=== PATIENT | female | born 1940 | race Caucasian/White ===

== ENCOUNTER 2017-02-17 16:40 | Inpatient (IN) | payer MEDICARE, BC ==
[2017-02-17] MEDS ORDERED: SODIUM CHLORIDE 0.9% 1000ML 500 ML IV SCH (17:15)
[2017-02-17] MEDS: SODIUM CHLORIDE 0.9% FLUSH 10 ML SOL IV PRN ×3 (17:15→20:49)
[2017-02-17 17:40] LABS: BASOPHILS % (AUTO) 0 % (0-3); EOSINOPHILS % (AUTO) 0 % (0-9); HEMATOCRIT 25 % (35-47); MEAN CORPUSCULAR HGB CONC 33.1 gm/dl (32.0-36.0); MEAN CORPUSCULAR VOLUME 83 fL (81-99); MONOCYTES % (AUTO) 7.5 % (0-12)
[2017-02-17] MEDS ORDERED: SODIUM CHLORIDE 0.9% 500 ML 500 ML IV ONE (17:40)
[2017-02-17 17:43] LABS: CALCIUM 8.3 mg/dl (8.5-10.1); POTASSIUM 3.5 mMol/L (3.5-5.1)
[2017-02-17] MEDS ORDERED: ACETAMINOPHEN 325 MG PO ONE (17:52)
[2017-02-17] MEDS ORDERED: ACETAMINOPHEN 325 MG ONE (17:56)
[2017-02-17 19:02] LABS: APPEARANCE,URINE Slightly Cloudy; BILIRUBIN,URINE 1+ (NEGATIVE); COLOR,URINE Brown; GLUCOSE, URINE (UA) NEGATIVE (NEGATIVE); KETONES,URINE NEGATIVE (NEGATIVE); LEUKOCYTE ESTERASE ,URINE 2+ (NEGATIVE); NITRATE,URINE POSITIVE (NEGATIVE); OCCULT BLOOD,URINE 3+ (NEG-TRACE); PH,URINE 5.5; UROBILINOGEN,URINE 0.2 (0.2-1.0 EU)
[2017-02-17] MEDS ORDERED: APAP/CODEINE 300/30 TAB PO PRN (19:06)
[2017-02-17] MEDS ORDERED: POLYETHYLENE GLYCOL 17 GM/1 TBS PDS PO PRN (19:06)
[2017-02-17] MEDS ORDERED: PREDNISONE 5 MG TAB PO SCH (19:15)
[2017-02-17] MEDS ORDERED: BRIMONIDINE 0.2% EACHEYE SCH (19:15)
[2017-02-17 19:54] LABS: ICTOTEST,URINE NEGATIVE (NEGATIVE); RBC,URINE TNTC (0-3AV/HPF); WBC,URINE TNTC (0-5AV/HPF)
[2017-02-17] MEDS ORDERED: CEFTRIAXONE 1 GM PDS 1 GM in SODIUM CHLORIDE 0.9% 100 ML 100 ML IV SCH (20:00)
[2017-02-17] MEDS: SODIUM CHLORIDE/KCL 20MEQ 1,000 ML IV SCH (20:49)
[2017-02-17] MEDS ORDERED: MYCOPHENOLATE 250 MG PO SCH (21:00)
[2017-02-17] MEDS ORDERED: DABIGATRAN 75 MG PO SCH (21:00)
[2017-02-17] MEDS ORDERED: MYCOPHENOLATE 500 MG PO SCH (21:00)
[2017-02-17] MEDS: BRIMONIDINE 0.2% EACHEYE SCH (22:15)
[2017-02-17] MEDS: LATANOPROST 0.005% SOL EACHEYE SCH (22:16)
[2017-02-17] MEDS: INSULIN GLARGINE, RECOMBINAN 100 U/ML SOL SC SCH (22:29)
[2017-02-17] MEDS: CEFTRIAXONE 1 GM (PREMIX) SOL IV SCH (22:32)
[2017-02-17] MEDS: ACETAMINOPHEN 325 MG PO SCH (22:37)
[2017-02-17] MEDS: GEMFIBROZIL 600 MG TAB PO SCH (22:37)
[2017-02-17] MEDS: EZETIMIBE 10 MG TAB PO SCH (22:37)
[2017-02-17] MEDS: MYCOPHENOLATE 250 MG PO SCH (22:59)
[2017-02-17] MEDS: DABIGATRAN 75 MG PO SCH (22:59)
[2017-02-17] MEDS: MYCOPHENOLATE 500 MG PO SCH (23:00)
[2017-02-18] MEDS: SODIUM CHLORIDE/KCL 20MEQ 1,000 ML IV SCH ×5 (02:54→20:03)
[2017-02-18] MEDS ORDERED: ACETAMINOPHEN 325 MG PO PRN (03:48)
[2017-02-18 08:05] LABS: BASOPHILS % (AUTO) 0 % (0-3); EOSINOPHILS % (AUTO) 0 % (0-9); HEMATOCRIT 22 % (35-47); MEAN CORPUSCULAR HGB CONC 33.3 gm/dl (32.0-36.0); MEAN CORPUSCULAR VOLUME 83 fL (81-99); MONOCYTES % (AUTO) 9.2 % (0-12); NEUTROPHILS % (AUTO) 82.9 % (37-80)
[2017-02-18 08:34] LABS: CALCIUM 7.6 mg/dl (8.5-10.1); POTASSIUM 3.3 mMol/L (3.5-5.1)
[2017-02-18] MEDS ORDERED: ENOXAPARIN 40 MG SOL SC SCH (09:00)
[2017-02-18] MEDS: BRIMONIDINE 0.2% EACHEYE SCH ×2 (09:20→20:04)
[2017-02-18] MEDS: MYCOPHENOLATE 250 MG PO SCH ×2 (09:20→17:25)
[2017-02-18] MEDS: MYCOPHENOLATE 500 MG PO SCH ×2 (09:20→17:26)
[2017-02-18] MEDS: HUMALOG PEN 100 U/ML SC SCH ×6 (09:21→18:47)
[2017-02-18] MEDS: DABIGATRAN 75 MG PO SCH ×2 (09:21→17:26)
[2017-02-18] MEDS: TIMOLOL MALEATE 0.5% OPHTHAL SOL EACHEYE SCH (09:22)
[2017-02-18] MEDS: GEMFIBROZIL 600 MG TAB PO SCH ×2 (09:30→17:25)
[2017-02-18] MEDS: CARVEDILOL 3.125 MG TAB PO SCH ×2 (09:30→17:25)
[2017-02-18] MEDS: DIGOXIN 0.125 MG TAB PO SCH (09:30)
[2017-02-18] MEDS: PREDNISONE 5 MG TAB PO SCH (09:30)
[2017-02-18] MEDS: INSULIN GLARGINE, RECOMBINAN 100 U/ML SOL SC SCH ×3 (10:05→21:36)
[2017-02-18] MEDS: POTASSIUM CHLORIDE 10 MEQ TER PO SCH ×2 (11:18→14:13)
[2017-02-18] MEDS: DOCUSATE SODIUM 100 MG SGL PO SCH (11:30)
[2017-02-18] MEDS: CEFTRIAXONE 1 GM (PREMIX) SOL IV SCH (20:11)
[2017-02-18] MEDS ORDERED: SODIUM CHLORIDE 0.9% 250 ML SOL IV SCH (21:30)
[2017-02-18] MEDS ORDERED: FUROSEMIDE 20mg SOL IV SCH (21:30)
[2017-02-18] MEDS: LATANOPROST 0.005% SOL EACHEYE SCH (21:34)
[2017-02-18] MEDS: ACETAMINOPHEN 325 MG PO SCH (21:37)
[2017-02-18] MEDS: EZETIMIBE 10 MG TAB PO SCH (21:37)
[2017-02-18 22:15] LABS: ABO A; ANTIBODY SCREEN Negative; RH TYPE Positive; UNIT TYPE A POSITIVE
[2017-02-18 22:16] LABS: UNIT TYPE A POSITIVE
[2017-02-19] MEDS: SODIUM CHLORIDE/KCL 20MEQ 1,000 ML IV SCH ×6 (00:05→22:16)
[2017-02-19 07:57] LABS: BASOPHILS % (AUTO) 0 % (0-3); EOSINOPHILS % (AUTO) 0 % (0-9); HEMATOCRIT 29 % (35-47); MEAN CORPUSCULAR VOLUME 84 fL (81-99); MONOCYTES % (AUTO) 8.9 % (0-12); NEUTROPHILS % (AUTO) 75.9 % (37-80)
[2017-02-19 08:03] LABS: CALCIUM 7.4 mg/dl (8.5-10.1); POTASSIUM 4.6 mMol/L (3.5-5.1)
[2017-02-19] MEDS: GEMFIBROZIL 600 MG TAB PO SCH ×2 (10:22→18:03)
[2017-02-19] MEDS: DIGOXIN 0.125 MG TAB PO SCH (10:22)
[2017-02-19] MEDS: CARVEDILOL 3.125 MG TAB PO SCH ×2 (10:22→18:03)
[2017-02-19] MEDS: MYCOPHENOLATE 250 MG PO SCH ×2 (10:23→18:03)
[2017-02-19] MEDS: MYCOPHENOLATE 500 MG PO SCH ×2 (10:24→18:03)
[2017-02-19] MEDS: BRIMONIDINE 0.2% EACHEYE SCH ×3 (10:24→20:46)
[2017-02-19] MEDS: DABIGATRAN 75 MG PO SCH ×2 (10:25→18:03)
[2017-02-19] MEDS: TIMOLOL MALEATE 0.5% OPHTHAL SOL EACHEYE SCH (10:25)
[2017-02-19] MEDS: HUMALOG PEN 100 U/ML SC SCH ×6 (10:56→19:15)
[2017-02-19] MEDS: INSULIN GLARGINE, RECOMBINAN 100 U/ML SOL SC SCH ×2 (10:57→20:58)
[2017-02-19] MEDS: DOCUSATE SODIUM 100 MG SGL PO SCH (11:47)
[2017-02-19] MEDS: ACETAMINOPHEN 325 MG PO SCH (20:57)
[2017-02-19] MEDS: LATANOPROST 0.005% SOL EACHEYE SCH (20:57)
[2017-02-19] MEDS: EZETIMIBE 10 MG TAB PO SCH (20:58)
[2017-02-19] MEDS: SULFAMETHOXAZOLE/TRIMETHOPRI 800/160 MG PO SCH (21:02)
[2017-02-19] MEDS: CEFTRIAXONE 1 GM (PREMIX) SOL IV SCH (21:45)
[2017-02-20] MEDS: SODIUM CHLORIDE/KCL 20MEQ 1,000 ML IV SCH ×3 (03:08→20:57)
[2017-02-20 07:26] LABS: BASOPHILS % (AUTO) 1 % (0-3); EOSINOPHILS % (AUTO) 0 % (0-9); HEMATOCRIT 29 % (35-47); MEAN CORPUSCULAR HGB CONC 33.4 gm/dl (32.0-36.0); MEAN CORPUSCULAR VOLUME 83 fL (81-99); MONOCYTES % (AUTO) 8.4 % (0-12); NEUTROPHILS % (AUTO) 79.9 % (37-80)
[2017-02-20 07:48] LABS: CALCIUM 7.8 mg/dl (8.5-10.1); POTASSIUM 4.7 mMol/L (3.5-5.1)
[2017-02-20] MEDS: BRIMONIDINE 0.2% EACHEYE SCH ×2 (07:55→20:54)
[2017-02-20] MEDS: TIMOLOL MALEATE 0.5% OPHTHAL SOL EACHEYE SCH (08:02)
[2017-02-20] MEDS: SULFAMETHOXAZOLE/TRIMETHOPRI 800/160 MG PO SCH (09:06)
[2017-02-20] MEDS: MYCOPHENOLATE 250 MG PO SCH ×2 (09:06→17:59)
[2017-02-20] MEDS: MYCOPHENOLATE 500 MG PO SCH ×2 (09:07→18:00)
[2017-02-20] MEDS: DIGOXIN 0.125 MG TAB PO SCH (09:08)
[2017-02-20] MEDS: CARVEDILOL 3.125 MG TAB PO SCH ×2 (09:08→18:01)
[2017-02-20] MEDS: GEMFIBROZIL 600 MG TAB PO SCH ×2 (09:08→18:02)
[2017-02-20] MEDS: DABIGATRAN 75 MG PO SCH ×2 (09:08→18:03)
[2017-02-20] MEDS: PREDNISONE 5 MG TAB PO SCH (09:09)
[2017-02-20] MEDS: INSULIN GLARGINE, RECOMBINAN 100 U/ML SOL SC SCH ×2 (09:13→20:55)
[2017-02-20] MEDS: HUMALOG PEN 100 U/ML SC SCH ×6 (09:13→18:04)
[2017-02-20] MEDS: DOCUSATE SODIUM 100 MG SGL PO SCH (12:09)
[2017-02-20] MEDS: CIPROFLOXACIN HCL 500 MG TAB PO SCH (18:01)
[2017-02-20] MEDS: ACETAMINOPHEN 325 MG PO SCH (20:56)
[2017-02-20] MEDS: EZETIMIBE 10 MG TAB PO SCH (20:57)
[2017-02-20] MEDS: LATANOPROST 0.005% SOL EACHEYE SCH (21:05)
[2017-02-21] MEDS: SODIUM CHLORIDE/KCL 20MEQ 1,000 ML IV SCH ×4 (03:30→14:22)
[2017-02-21] MEDS: CIPROFLOXACIN HCL 500 MG TAB PO SCH ×2 (06:08→17:44)
[2017-02-21] MEDS: BRIMONIDINE 0.2% EACHEYE SCH ×2 (07:53→21:57)
[2017-02-21] MEDS: TIMOLOL MALEATE 0.5% OPHTHAL SOL EACHEYE SCH (08:00)
[2017-02-21] MEDS: CARVEDILOL 3.125 MG TAB PO SCH ×2 (09:17→17:44)
[2017-02-21] MEDS: GEMFIBROZIL 600 MG TAB PO SCH ×2 (09:17→17:45)
[2017-02-21] MEDS: MYCOPHENOLATE 250 MG PO SCH ×2 (09:17→17:44)
[2017-02-21] MEDS: MYCOPHENOLATE 500 MG PO SCH ×2 (09:17→17:44)
[2017-02-21] MEDS: DIGOXIN 0.125 MG TAB PO SCH (09:17)
[2017-02-21] MEDS: DABIGATRAN 75 MG PO SCH (09:18)
[2017-02-21] MEDS: INSULIN GLARGINE, RECOMBINAN 100 U/ML SOL SC SCH ×2 (09:22→21:03)
[2017-02-21] MEDS: HUMALOG PEN 100 U/ML SC SCH ×6 (09:22→17:46)
[2017-02-21] MEDS: DOCUSATE SODIUM 100 MG SGL PO SCH (11:38)
[2017-02-21] MEDS: ACETAMINOPHEN 325 MG PO SCH (21:25)
[2017-02-21] MEDS: LATANOPROST 0.005% SOL EACHEYE SCH (21:25)
[2017-02-21] MEDS: SODIUM CHLORIDE 0.9% FLUSH 10 ML SOL IV SCH (21:25)
[2017-02-21] MEDS: EZETIMIBE 10 MG TAB PO SCH (21:28)
[2017-02-22] MEDS: SODIUM CHLORIDE 0.9% FLUSH 10 ML SOL IV SCH ×3 (06:36→21:05)
[2017-02-22] MEDS: CIPROFLOXACIN HCL 500 MG TAB PO SCH ×2 (06:36→18:36)
[2017-02-22 07:28] LABS: CALCIUM 8.3 mg/dl (8.5-10.1); POTASSIUM 5.7 mMol/L (3.5-5.1)
[2017-02-22 07:45] LABS: BASOPHILS % (AUTO) 0 % (0-3); EOSINOPHILS % (AUTO) 3 % (0-9); HEMATOCRIT 29 % (35-47); MEAN CORPUSCULAR HGB CONC 32.6 gm/dl (32.0-36.0); MEAN CORPUSCULAR VOLUME 84 fL (81-99); MONOCYTES % (AUTO) 7.7 % (0-12); NEUTROPHILS % (AUTO) 71.6 % (37-80)
[2017-02-22] MEDS: BRIMONIDINE 0.2% EACHEYE SCH ×2 (08:53→18:35)
[2017-02-22] MEDS: TIMOLOL MALEATE 0.5% OPHTHAL SOL EACHEYE SCH (08:53)
[2017-02-22] MEDS: MYCOPHENOLATE 250 MG PO SCH ×2 (08:54→18:35)
[2017-02-22] MEDS: MYCOPHENOLATE 500 MG PO SCH ×2 (08:55→18:35)
[2017-02-22] MEDS: CARVEDILOL 3.125 MG TAB PO SCH ×2 (08:56→18:36)
[2017-02-22] MEDS: DIGOXIN 0.125 MG TAB PO SCH (08:56)
[2017-02-22] MEDS: GEMFIBROZIL 600 MG TAB PO SCH ×2 (08:57→18:37)
[2017-02-22] MEDS: PREDNISONE 5 MG TAB PO SCH (08:58)
[2017-02-22] MEDS: INSULIN GLARGINE, RECOMBINAN 100 U/ML SOL SC SCH ×2 (08:59→21:07)
[2017-02-22] MEDS: HUMALOG PEN 100 U/ML SC SCH ×4 (09:00→18:30)
[2017-02-22] MEDS: DOCUSATE SODIUM 100 MG SGL PO SCH ×2 (11:56→12:56)
[2017-02-22] MEDS: LATANOPROST 0.005% SOL EACHEYE SCH (21:05)
[2017-02-22] MEDS: EZETIMIBE 10 MG TAB PO SCH (21:06)
[2017-02-22] MEDS: ACETAMINOPHEN 325 MG PO SCH (21:06)
[2017-02-22 23:25] VITALS: RESP 20
[2017-02-23] MEDS: SODIUM CHLORIDE 0.9% FLUSH 10 ML SOL IV SCH ×2 (04:35→12:00)
[2017-02-23] MEDS: CIPROFLOXACIN HCL 500 MG TAB PO SCH (06:44)
[2017-02-23] MEDS: CARVEDILOL 3.125 MG TAB PO SCH (09:19)
[2017-02-23] MEDS: DIGOXIN 0.125 MG TAB PO SCH (09:19)
[2017-02-23] MEDS: MYCOPHENOLATE 250 MG PO SCH (09:20)
[2017-02-23] MEDS: TIMOLOL MALEATE 0.5% OPHTHAL SOL EACHEYE SCH (09:20)
[2017-02-23] MEDS: MYCOPHENOLATE 500 MG PO SCH (09:21)
[2017-02-23] MEDS: GEMFIBROZIL 600 MG TAB PO SCH (09:22)
[2017-02-23] MEDS: BRIMONIDINE 0.2% EACHEYE SCH (09:22)
[2017-02-23] MEDS: INSULIN GLARGINE, RECOMBINAN 100 U/ML SOL SC SCH (09:24)
[2017-02-23] MEDS: HUMALOG PEN 100 U/ML SC SCH ×2 (09:25→12:59)
[2017-02-23 11:43] VITALS: BP 145/78; PULSE 61; TEMP 98; O2SAT 100
[2017-02-23] MEDS: DOCUSATE SODIUM 100 MG SGL PO SCH (12:00)
== END 2017-02-23 14:40 | DRG 690 ==
LOC: ED 16:40 → ACUTE CARE 18:47 → UNDOADMIN 18:47 → ACUTE CARE 20:00
PROVIDERS: ADMIT Family Medicine; ATTEND Family Medicine
PROC: 30233N1 Transfusion of Nonautologous Red Blood Cells into Peripheral Vein, Percutaneous Approach (ICD-10-PCS; principal; 2017-02-18)
PROC: 30233N1 Transfusion of Nonautologous Red Blood Cells into Peripheral Vein, Percutaneous Approach (ICD-10-PCS; 2017-02-19)
PROC: F01 Physical Rehabilitation and Diagnostic Audiology, Rehabilitation, Motor and/or Nerve Function Assessment (ICD-10-PCS; 2017-02-19)
DX: N30.01 Acute cystitis with hematuria (principal); D64.9 Anemia, unspecified; E86.0 Dehydration; E10.9 Type 1 diabetes mellitus without complications; R79.89 Other specified abnormal findings of blood chemistry; Z79.4 Long term (current) use of insulin
CPT/HCPCS: 36415; 80048; 80053; 81001; 82272; 82962; 84132; 84484; 85018; 85025; 85610; 86850; 86900; 86901; 86920; 87040; 87077; 87088; 87186; 87804; 96365; 99070; 99284; 99291; J0696; J1650; J1815; J1817; J1940; P9016; A6232

== ENCOUNTER 2017-06-11 02:26 | Emergency (ER) | payer MEDICARE, BC ==
[2017-06-11 02:35] VITALS: BP 175/81; PULSE 65; RESP 16; O2SAT 100
[2017-06-11] MEDS ORDERED: BACITRACIN 500 U/GM OIN TOP ONE ×2 (02:37→02:46)
== END 2017-06-11 02:54 | disposition home or self-care (01) | DRG 605 ==
LOC: ED 02:26
DX: S51.811A Laceration without foreign body of right forearm, initial encounter (principal); W45.8XXA Other foreign body or object entering through skin, initial encounter
CPT/HCPCS: 99282

== ENCOUNTER 2017-08-10 21:55 | Inpatient (IN) | payer MEDICARE, BC ==
[2017-08-10] MEDS ORDERED: SODIUM CHLORIDE 0.9% 500 ML 500 ML IV ONE (22:09)
[2017-08-10 22:54] LABS: BASOPHILS % (AUTO) 0 % (0-3); EOSINOPHILS % (AUTO) 0 % (0-9); HEMATOCRIT 29 % (35-47); MEAN CORPUSCULAR HGB CONC 34.9 gm/dl (32.0-36.0); MEAN CORPUSCULAR VOLUME 85 fL (81-99); MONOCYTES % (AUTO) 8.3 % (0-12); NEUTROPHILS % (AUTO) 78.6 % (37-80)
[2017-08-10] MEDS: SODIUM CHLORIDE 0.9% FLUSH 10 ML SOL IV PRN (23:05)
[2017-08-10] MEDS ORDERED: ONDANSETRON HCL 4 MG/2 ML SOL ONE (23:09)
[2017-08-10] MEDS ORDERED: ONDANSETRON HCL 4 MG/2 ML SOL IV ONE (23:09)
[2017-08-10 23:12] LABS: APPEARANCE,URINE Slightly Cloudy; BILIRUBIN,URINE NEGATIVE (NEGATIVE); COLOR,URINE Yellow; GLUCOSE, URINE (UA) NEGATIVE (NEGATIVE); KETONES,URINE NEGATIVE (NEGATIVE); LEUKOCYTE ESTERASE ,URINE 3+ (NEGATIVE); NITRATE,URINE POSITIVE (NEGATIVE); OCCULT BLOOD,URINE 2+ (NEG-TRACE); PH,URINE 5.5; UROBILINOGEN,URINE 0.2 (0.2-1.0 EU)
[2017-08-10 23:22] LABS: CALCIUM 8.3 mg/dl (8.5-10.1); POTASSIUM 4.1 mMol/L (3.5-5.1)
[2017-08-10] MEDS ORDERED: ACETAMINOPHEN 325 MG ONE (23:23)
[2017-08-10 23:25] LABS: WBC,URINE 100-120 (0-5AV/HPF)
[2017-08-10] MEDS ORDERED: ACETAMINOPHEN 325 MG PO ONE (23:25)
[2017-08-10] MEDS ORDERED: LEVOFLOXACIN IV ONE (23:26)
[2017-08-10] MEDS ORDERED: LEVOFLOXACIN 25 MG/ML SOL IV ONE (23:27)
[2017-08-10] MEDS: LEVOFLOXACIN 25 MG/ML 500 MG in SODIUM CHLORIDE 0.9% 100 ML 100 ML IV SCH (23:35)
[2017-08-10] MEDS ORDERED: SODIUM CHLORIDE 0.9% 1000 ML SOL IV SCH (23:45)
[2017-08-10] MEDS ORDERED: PREDNISONE 5 MG TAB PO SCH (23:45)
[2017-08-10] MEDS: BRIMONIDINE 0.2% EACHEYE SCH (23:45)
[2017-08-10] MEDS ORDERED: FLUCONAZOLE 100 MG TAB PO SCH (23:45)
[2017-08-10] MEDS ORDERED: APAP/CODEINE 300/30 TAB PO PRN (23:48)
[2017-08-10] MEDS ORDERED: NYSTATIN APPL TOP PRN (23:48)
[2017-08-10] MEDS ORDERED: POLYETHYLENE GLYCOL 17 GM/1 TBS PDS PO PRN (23:48)
[2017-08-10] MEDS ORDERED: KETOCONAZOLE CREAM 2% CRE TP PRN (23:48)
[2017-08-10] MEDS ORDERED: DM/GUAIFENESIN SYRUP 10 ML SYRP PO PRN (23:48)
[2017-08-10] MEDS ORDERED: ONDANSETRON HCL 4 MG/2 ML SOL IV PRN (23:51)
[2017-08-11] MEDS: SODIUM CHLORIDE 0.9% 1000ML 1,000 ML IV SCH ×2 (00:37→09:19)
[2017-08-11 07:29] LABS: CALCIUM 7.7 mg/dl (8.5-10.1); POTASSIUM 3.9 mMol/L (3.5-5.1)
[2017-08-11 07:32] LABS: BASOPHILS % (AUTO) 1 % (0-3); EOSINOPHILS % (AUTO) 0 % (0-9); HEMATOCRIT 27 % (35-47); MEAN CORPUSCULAR VOLUME 85 fL (81-99); MONOCYTES % (AUTO) 8.5 % (0-12); NEUTROPHILS % (AUTO) 75.3 % (37-80)
[2017-08-11] MEDS ORDERED: TIMOLOL MALEATE 0.5% EACHEYE SCH (09:00)
[2017-08-11] MEDS ORDERED: DIGOXIN 0.125 MG TAB PO SCH (09:00)
[2017-08-11] MEDS: CALCIUM CARBONATE 500 MG TAB PO SCH ×2 (09:17→21:17)
[2017-08-11] MEDS: PREDNISONE 5 MG TAB PO SCH (09:17)
[2017-08-11] MEDS: FERROUS SULFATE 325 MG TAB PO SCH (09:17)
[2017-08-11] MEDS: CARVEDILOL 3.125 MG TAB PO SCH ×2 (09:17→17:37)
[2017-08-11] MEDS: MULTIVITAMIN2 1 EA TAB PO SCH (09:17)
[2017-08-11] MEDS: GEMFIBROZIL 600 MG TAB PO SCH ×2 (09:18→21:18)
[2017-08-11] MEDS: CHOLECALCIFEROL 1,000 IU TAB PO SCH (09:18)
[2017-08-11] MEDS: HUMALOG PEN 100 U/ML SC SCH ×7 (09:19→21:35)
[2017-08-11] MEDS: DOCUSATE SODIUM 100 MG SGL PO SCH (11:47)
[2017-08-11] MEDS: BRIMONIDINE 0.2% EACHEYE SCH ×2 (12:53→23:33)
[2017-08-11] MEDS: MYCOPHENOLATE 250 MG PO SCH ×2 (12:54→21:25)
[2017-08-11] MEDS: TIMOLOL MALEATE 0.5% OPHTHAL SOL EACHEYE SCH (12:54)
[2017-08-11] MEDS: MYCOPHENOLATE 500 MG PO SCH ×2 (12:55→21:28)
[2017-08-11] MEDS: DABIGATRAN 75 MG PO SCH ×2 (12:57→21:17)
[2017-08-11] MEDS: [UNRECOGNIZED DRUG - OTHER] PO SCH (13:00)
[2017-08-11] MEDS ORDERED: LOPERAMIDE HYDROCHLORIDE 2 MG CAP PO PRN (13:41)
[2017-08-11] MEDS ORDERED: INSULIN GLARGINE, RECOMBINAN 100 U/ML SOL SC SCH ×2 (20:00→21:00)
[2017-08-11] MEDS: LATANOPROST 0.005% SOL EACHEYE SCH (21:24)
[2017-08-11] MEDS: ACETAMINOPHEN 325 MG PO SCH (21:25)
[2017-08-11] MEDS: EZETIMIBE 10 MG TAB PO SCH (21:25)
[2017-08-11] MEDS ORDERED: LEVOFLOXACIN 25 MG/ML SOL IV ONE (23:04)
[2017-08-11] MEDS ORDERED: SODIUM CHLORIDE 0.9% 100 ML 100 ML IV ONE (23:04)
[2017-08-11] MEDS: SODIUM CHLORIDE 0.9% FLUSH 10 ML SOL IV PRN (23:33)
[2017-08-11] MEDS: LEVOFLOXACIN 25 MG/ML 500 MG in SODIUM CHLORIDE 0.9% 100 ML 100 ML IV SCH (23:33)
[2017-08-12 07:33] LABS: POTASSIUM 4.2 mMol/L (3.5-5.1)
[2017-08-12 07:37] LABS: HEMATOCRIT 25 % (35-47); MEAN CORPUSCULAR HGB CONC 33.8 gm/dl (32.0-36.0); MEAN CORPUSCULAR VOLUME 85 fL (81-99)
[2017-08-12] MEDS: BRIMONIDINE 0.2% EACHEYE SCH ×2 (08:47→17:51)
[2017-08-12] MEDS: MYCOPHENOLATE 500 MG PO SCH ×2 (08:47→17:52)
[2017-08-12] MEDS: MYCOPHENOLATE 250 MG PO SCH ×2 (08:47→17:52)
[2017-08-12] MEDS: CARVEDILOL 3.125 MG TAB PO SCH ×2 (08:49→17:57)
[2017-08-12] MEDS: FERROUS SULFATE 325 MG TAB PO SCH (08:49)
[2017-08-12] MEDS: DIGOXIN 0.125 MG TAB PO SCH ×2 (08:50→17:55)
[2017-08-12] MEDS: HUMALOG PEN 100 U/ML SC SCH ×3 (08:50→17:54)
[2017-08-12] MEDS: GEMFIBROZIL 600 MG TAB PO SCH ×2 (08:51→17:56)
[2017-08-12] MEDS: CALCIUM CARBONATE 500 MG TAB PO SCH ×2 (08:52→11:22)
[2017-08-12] MEDS: DABIGATRAN 75 MG PO SCH ×2 (08:53→17:57)
[2017-08-12] MEDS: MULTIVITAMIN2 1 EA TAB PO SCH (08:54)
[2017-08-12] MEDS: [UNRECOGNIZED DRUG - OTHER] PO SCH (08:54)
[2017-08-12] MEDS: TIMOLOL MALEATE 0.5% OPHTHAL SOL EACHEYE SCH (08:54)
[2017-08-12 08:55] LABS: ANISOCYTOSIS SLIGHT AMT; BASOPHILS % (MANUAL) 0 % (0-3); EOSINOPHILS % (MANUAL) 1 % (0-9); LYMPHOCYTES % (MANUAL) 23 % (10-50); OVALOCYTES PRESENT; PLATELET MORPHOLOGY COMMENT DECREASED
[2017-08-12] MEDS: CHOLECALCIFEROL 1,000 IU TAB PO SCH (08:55)
[2017-08-12] MEDS: INSULIN GLARGINE, RECOMBINAN 100 U/ML SOL SC SCH ×3 (08:56→21:01)
[2017-08-12] MEDS: DOCUSATE SODIUM 100 MG SGL PO SCH (11:22)
[2017-08-12 16:33] VITALS: RESP 18
[2017-08-12] MEDS: ACETAMINOPHEN 325 MG PO SCH (20:57)
[2017-08-12] MEDS: EZETIMIBE 10 MG TAB PO SCH (20:58)
[2017-08-12] MEDS: LATANOPROST 0.005% SOL EACHEYE SCH (20:58)
[2017-08-12] MEDS ORDERED: LEVOFLOXACIN 25 MG/ML SOL IV ONE (22:27)
[2017-08-12] MEDS ORDERED: SODIUM CHLORIDE 0.9% 100 ML 100 ML IV ONE (22:27)
[2017-08-12] MEDS: LEVOFLOXACIN 25 MG/ML 500 MG in SODIUM CHLORIDE 0.9% 100 ML 100 ML IV SCH (23:38)
[2017-08-13] MEDS: TIMOLOL MALEATE 0.5% OPHTHAL SOL EACHEYE SCH (09:44)
[2017-08-13] MEDS: CARVEDILOL 3.125 MG TAB PO SCH (09:45)
[2017-08-13] MEDS: CHOLECALCIFEROL 1,000 IU TAB PO SCH (09:45)
[2017-08-13] MEDS: INSULIN GLARGINE, RECOMBINAN 100 U/ML SOL SC SCH (09:45)
[2017-08-13] MEDS: HUMALOG PEN 100 U/ML SC SCH ×2 (09:45→13:04)
[2017-08-13] MEDS: GEMFIBROZIL 600 MG TAB PO SCH (09:46)
[2017-08-13] MEDS: CALCIUM CARBONATE 500 MG TAB PO SCH ×2 (09:47→12:20)
[2017-08-13] MEDS: DIGOXIN 0.125 MG TAB PO SCH (09:47)
[2017-08-13] MEDS: MULTIVITAMIN2 1 EA TAB PO SCH (09:48)
[2017-08-13] MEDS: FERROUS SULFATE 325 MG TAB PO SCH (09:48)
[2017-08-13] MEDS: PREDNISONE 5 MG TAB PO SCH (09:48)
[2017-08-13] MEDS: BRIMONIDINE 0.2% EACHEYE SCH (09:49)
[2017-08-13] MEDS: [UNRECOGNIZED DRUG - OTHER] PO SCH (09:53)
[2017-08-13] MEDS: DABIGATRAN 75 MG PO SCH (10:00)
[2017-08-13] MEDS: MYCOPHENOLATE 250 MG PO SCH (10:02)
[2017-08-13] MEDS: MYCOPHENOLATE 500 MG PO SCH (10:02)
[2017-08-13 11:22] VITALS: BP 159/78; PULSE 76; TEMP 97.6; O2SAT 100
[2017-08-13] MEDS: DOCUSATE SODIUM 100 MG SGL PO SCH (12:20)
== END 2017-08-13 15:10 | disposition home or self-care (01) | DRG 690 ==
LOC: ED 21:55 → ACUTE CARE 23:39
PROVIDERS: ADMIT Emergency Medicine; ATTEND Emergency Medicine
DX: N39.0 Urinary tract infection, site not specified (principal); I48.91 Unspecified atrial fibrillation; E10.9 Type 1 diabetes mellitus without complications; K52.9 Noninfective gastroenteritis and colitis, unspecified; D64.9 Anemia, unspecified; Z79.4 Long term (current) use of insulin
CPT/HCPCS: 36415; 71010; 80048; 81001; 82962; 84484; 85007; 85025; 85027; 87040; 87077; 87088; 87186; 93005; 96365; 96366; 96374; 99221; 99231; 99238; 99291; J1815; J1817; J1956; J2405

== ENCOUNTER 2017-11-21 09:33 | Emergency (ER) | payer MEDICARE, BC ==
[2017-11-21 09:33] VITALS: O2SAT 100
[2017-11-21 09:52] LABS: APPEARANCE,URINE Cloudy; BILIRUBIN,URINE 1+ (NEGATIVE); COLOR,URINE Red; GLUCOSE, URINE (UA) NEGATIVE (NEGATIVE); KETONES,URINE TRACE (NEGATIVE); LEUKOCYTE ESTERASE ,URINE TRACE (NEGATIVE); NITRATE,URINE POSITIVE (NEGATIVE); OCCULT BLOOD,URINE 3+ (NEG-TRACE); PH,URINE 5.5
[2017-11-21 09:56] VITALS: TEMP 97.5
[2017-11-21 10:05] LABS: BASOPHILS % (AUTO) 1 % (0-3); EOSINOPHILS % (AUTO) 3 % (0-9); HEMATOCRIT 29 % (35-47); MEAN CORPUSCULAR HGB CONC 34.2 gm/dl (32.0-36.0); MEAN CORPUSCULAR VOLUME 87 fL (81-99); MONOCYTES % (AUTO) 6.7 % (0-12); NEUTROPHILS % (AUTO) 61.1 % (37-80)
[2017-11-21 10:10] LABS: CALCIUM 8.7 mg/dl (8.5-10.1); POTASSIUM 4.3 mMol/L (3.5-5.1)
[2017-11-21 10:32] LABS: ICTOTEST,URINE NEGATIVE (NEGATIVE); RBC,URINE 90-100 (0-3AV/HPF)
[2017-11-21 10:58] VITALS: BP 124/52; PULSE 61; RESP 16
== END 2017-11-21 10:40 | disposition home or self-care (01) | DRG 696 ==
LOC: ED 09:33
DX: R31.9 Hematuria, unspecified (principal)
CPT/HCPCS: 80048; 81001; 85025; 93005; 99282; 99283

== ENCOUNTER 2017-11-26 14:23 | Emergency (ER) | payer MEDICARE, BC ==
[2017-11-26 14:24] VITALS: O2SAT 100
[2017-11-26 14:45] VITALS: TEMP 96.7
[2017-11-26 15:44] LABS: HEMATOCRIT 30 % (35-47); MEAN CORPUSCULAR HGB CONC 33.2 gm/dl (32.0-36.0); MEAN CORPUSCULAR VOLUME 86 fL (81-99)
[2017-11-26 15:52] LABS: CALCIUM 8.9 mg/dl (8.5-10.1)
[2017-11-26 16:01] LABS: EOSINOPHILS % (MANUAL) 0 % (0-9); LYMPHOCYTES % (MANUAL) 28 % (10-50)
[2017-11-26 16:02] LABS: BASOPHILS % (MANUAL) 1 % (0-3); NORMAL RBCS PRESENT
[2017-11-26 17:01] VITALS: RESP 14
[2017-11-26 17:02] VITALS: BP 142/45; PULSE 52
== END 2017-11-26 16:50 | disposition home or self-care (01) | DRG 639 ==
LOC: ED 14:23
DX: E11.649 Type 2 diabetes mellitus with hypoglycemia without coma (principal); Z79.4 Long term (current) use of insulin
CPT/HCPCS: 36415; 80048; 82962; 85007; 85027; 99284

== ENCOUNTER 2018-02-16 06:27 | Observation (INO) | payer MEDICARE, BC ==
[2018-02-16 07:00] LABS: BASOPHILS % (AUTO) 0 % (0-3); EOSINOPHILS % (AUTO) 3 % (0-9); HEMATOCRIT 27 % (35-47); MEAN CORPUSCULAR HGB CONC 34.4 gm/dl (32.0-36.0); MEAN CORPUSCULAR VOLUME 88 fL (81-99); MONOCYTES % (AUTO) 9.6 % (0-12); NEUTROPHILS % (AUTO) 59.8 % (37-80)
[2018-02-16 07:13] LABS: ALBUMIN 3.1 gm/dl (3.4-5.0); CALCIUM 8.3 mg/dl (8.5-10.1); POTASSIUM 3.8 mMol/L (3.5-5.1)
[2018-02-16 07:25] LABS: APPEARANCE,URINE Clear; BILIRUBIN,URINE NEGATIVE (NEGATIVE); COLOR,URINE Yellow; GLUCOSE, URINE (UA) NEGATIVE (NEGATIVE); KETONES,URINE NEGATIVE (NEGATIVE); LEUKOCYTE ESTERASE ,URINE 1+ (NEGATIVE); NITRATE,URINE NEGATIVE (NEGATIVE); OCCULT BLOOD,URINE 2+ (NEG-TRACE); PH,URINE 5.5; UROBILINOGEN,URINE 0.2 (0.2-1.0 EU)
[2018-02-16] MEDS ORDERED: DM/GUAIFENESIN SYRUP 10 ML SYRP PO PRN (12:30)
[2018-02-16] MEDS ORDERED: APAP/CODEINE 300/30 TAB PO PRN (12:30)
[2018-02-16] MEDS ORDERED: CLINDAMYCIN HYDROCHLORIDE 150 MG CAP PO PRN (12:30)
[2018-02-16] MEDS ORDERED: POLYETHYLENE GLYCOL 17 GM/1 TBS PDS PO PRN (12:30)
[2018-02-16] MEDS ORDERED: FLUCONAZOLE 100 MG TAB PO PRN (12:30)
[2018-02-16] MEDS ORDERED: DIPHENHYDRAMINE 25 MG CAP PO PRN (13:57)
[2018-02-16] MEDS ORDERED: NYSTATIN 1 GM POW TOP PRN (14:15)
[2018-02-16] MEDS ORDERED: CHOLECALCIFEROL 5000 UNIT PO SCH (18:00)
[2018-02-16] MEDS: HUMALOG PEN 100 U/ML SC SCH ×2 (18:47→18:51)
[2018-02-16] MEDS: PREDNISONE 5 MG TAB PO SCH (18:51)
[2018-02-16] MEDS: GEMFIBROZIL 600 MG TAB PO SCH ×2 (18:58→21:36)
[2018-02-16] MEDS: MYCOPHENOLATE 500 MG PO SCH ×2 (18:59→21:35)
[2018-02-16] MEDS: MYCOPHENOLATE 250 MG PO SCH ×2 (18:59→21:35)
[2018-02-16] MEDS: CARVEDILOL 3.125 MG TAB PO SCH ×2 (19:02→21:36)
[2018-02-16] MEDS ORDERED: DABIGATRAN 75 MG PO SCH (21:00)
[2018-02-16] MEDS: LATANOPROST 0.005% SOL EACHEYE SCH (21:33)
[2018-02-16] MEDS: ACETAMINOPHEN 325 MG PO SCH (21:33)
[2018-02-16] MEDS: BRIMONIDINE 0.2% EACHEYE SCH (21:35)
[2018-02-16] MEDS: EZETIMIBE 10 MG TAB PO SCH (21:37)
[2018-02-16] MEDS: INSULIN GLARGINE, RECOMBINAN 100 U/ML SOL SC SCH (21:44)
[2018-02-17 07:46] LABS: BASOPHILS % (AUTO) 1 % (0-3); EOSINOPHILS % (AUTO) 2 % (0-9); HEMATOCRIT 24 % (35-47); MEAN CORPUSCULAR HGB CONC 33.8 gm/dl (32.0-36.0); MEAN CORPUSCULAR VOLUME 88 fL (81-99); MONOCYTES % (AUTO) 9.7 % (0-12); NEUTROPHILS % (AUTO) 48.2 % (37-80)
[2018-02-17] MEDS ORDERED: CHOLECALCIFEROL 1,000 IU TAB PO SCH (09:00)
[2018-02-17] MEDS: INSULIN GLARGINE, RECOMBINAN 100 U/ML SOL SC SCH ×2 (09:30→21:53)
[2018-02-17] MEDS: HUMALOG PEN 100 U/ML SC SCH ×3 (09:32→21:58)
[2018-02-17] MEDS: TIMOLOL MALEATE 0.5% OPHTHAL SOL EACHEYE SCH (09:39)
[2018-02-17] MEDS: CARVEDILOL 3.125 MG TAB PO SCH ×3 (09:46→20:02)
[2018-02-17] MEDS: GEMFIBROZIL 600 MG TAB PO SCH ×2 (09:46→20:03)
[2018-02-17] MEDS: MYCOPHENOLATE 500 MG PO SCH ×2 (09:47→20:01)
[2018-02-17] MEDS: FERROUS SULFATE 325 MG PO SCH (09:47)
[2018-02-17] MEDS: DIGOXIN 0.125 MG TAB PO SCH (09:47)
[2018-02-17] MEDS: MYCOPHENOLATE 250 MG PO SCH ×2 (09:47→20:01)
[2018-02-17] MEDS: MULTIVITAMIN2 1 EA TAB PO SCH (09:48)
[2018-02-17] MEDS: BRIMONIDINE 0.2% EACHEYE SCH ×2 (09:48→19:59)
[2018-02-17] MEDS: [UNRECOGNIZED DRUG - OTHER] PO SCH (09:57)
[2018-02-17] MEDS ORDERED: VITAMIN D3 2000 UNIT PO SCH (11:50)
[2018-02-17 12:11] LABS: ABO A; ANTIBODY SCREEN Negative; RH TYPE Positive; UNIT TYPE A POSITIVE
[2018-02-17] MEDS: CALCIUM CARBONATE 500 MG TAB PO SCH (12:14)
[2018-02-17 12:36] LABS: MEAN CORPUSCULAR HGB CONC 33.5 gm/dl (32.0-36.0)
[2018-02-17] MEDS: CHOLECALCIFEROL 1,000 IU TAB PO SCH (14:26)
[2018-02-17] MEDS: LACTOBACILLUS COMBO NO 10 PO SCH (14:26)
[2018-02-17] MEDS: SULFAMETHOXAZOLE/TRIMETHOPRI 800/160 MG PO SCH (14:27)
[2018-02-17] MEDS ORDERED: SODIUM CHLORIDE 0.9% FLUSH 10 ML SOL IV PRN (15:17)
[2018-02-17] MEDS ORDERED: SODIUM CHLORIDE 0.9% 500 ML 500 ML IV SCH (15:30)
[2018-02-17] MEDS ORDERED: FUROSEMIDE 20mg SOL IV ONE (18:00)
[2018-02-17 20:52] VITALS: RESP 18
[2018-02-17] MEDS: EZETIMIBE 10 MG TAB PO SCH (21:52)
[2018-02-17] MEDS: LATANOPROST 0.005% SOL EACHEYE SCH (21:53)
[2018-02-17] MEDS: ACETAMINOPHEN 325 MG PO SCH (21:53)
[2018-02-18 07:44] LABS: HEMATOCRIT 28 % (35-47); MEAN CORPUSCULAR HGB CONC 35.2 gm/dl (32.0-36.0); MEAN CORPUSCULAR VOLUME 87 fL (81-99)
[2018-02-18 08:16] LABS: BASOPHILS % (MANUAL) 1 % (0-3); EOSINOPHILS % (MANUAL) 6 % (0-9); LYMPHOCYTES % (MANUAL) 37 % (10-50); NORMAL RBCS PRESENT
[2018-02-18 08:29] VITALS: BP 147/80; PULSE 40; TEMP 97.8; O2SAT 100
[2018-02-18] MEDS ORDERED: SULFAMETHOXAZOLE PO SCH (09:00)
[2018-02-18] MEDS ORDERED: [UNRECOGNIZED DRUG - OTHER] PO SCH (09:00)
[2018-02-18] MEDS ORDERED: TRIMETHOPRIM PO SCH (09:00)
[2018-02-18] MEDS: BRIMONIDINE 0.2% EACHEYE SCH (09:02)
[2018-02-18] MEDS: TIMOLOL MALEATE 0.5% OPHTHAL SOL EACHEYE SCH (09:02)
[2018-02-18] MEDS: SULFAMETHOXAZOLE/TRIMETHOPRI 800/160 MG PO SCH (09:04)
[2018-02-18] MEDS: MYCOPHENOLATE 250 MG PO SCH (09:04)
[2018-02-18] MEDS: MYCOPHENOLATE 500 MG PO SCH (09:04)
[2018-02-18] MEDS: HUMALOG PEN 100 U/ML SC SCH ×2 (09:05→12:05)
[2018-02-18] MEDS: FERROUS SULFATE 325 MG PO SCH ×2 (09:05→12:05)
[2018-02-18] MEDS: LACTOBACILLUS COMBO NO 10 PO SCH (09:05)
[2018-02-18] MEDS: GEMFIBROZIL 600 MG TAB PO SCH (09:06)
[2018-02-18] MEDS: DIGOXIN 0.125 MG TAB PO SCH (09:06)
[2018-02-18] MEDS: [UNRECOGNIZED DRUG - OTHER] PO SCH (09:07)
[2018-02-18] MEDS: MULTIVITAMIN2 1 EA TAB PO SCH (09:08)
[2018-02-18] MEDS: PREDNISONE 5 MG TAB PO SCH ×2 (09:09→12:09)
[2018-02-18] MEDS: CHOLECALCIFEROL 1,000 IU TAB PO SCH (09:09)
[2018-02-18] MEDS: CARVEDILOL 3.125 MG TAB PO SCH (09:50)
[2018-02-18] MEDS: INSULIN GLARGINE, RECOMBINAN 100 U/ML SOL SC SCH (10:19)
[2018-02-18] MEDS: CALCIUM CARBONATE 500 MG TAB PO SCH (12:05)
[2018-02-18] MEDS ORDERED: VITAMIN D3 PO SCH (18:00)
== END 2018-02-18 15:10 | disposition home or self-care (01) | DRG 761 ==
LOC: ED 06:27 → UNDOADMOB 09:37 → ACUTE CARE 09:37
PROVIDERS: ADMIT Family Medicine; ATTEND Family Medicine
DX: N93.9 Abnormal uterine and vaginal bleeding, unspecified (principal); I48.91 Unspecified atrial fibrillation; D64.9 Anemia, unspecified; E10.9 Type 1 diabetes mellitus without complications; Z79.01 Long term (current) use of anticoagulants; Z79.4 Long term (current) use of insulin; R00.1 Bradycardia, unspecified
CPT/HCPCS: 36415; 80053; 81003; 82272; 82962; 85007; 85018; 85025; 85027; 85610; 85730; 86850; 86900; 86901; 86920; 99070; 99217; 99225; 99284; 99285; J1940; P9016; A6232; A9270-GY

== ENCOUNTER 2018-02-20 11:43 | Emergency (ER) | payer MEDICARE, BC ==
[2018-02-20] MEDS ORDERED: DEXTROSE 50% 1 VIAL SOL IV ONE (11:47)
[2018-02-20 11:56] LABS: BASOPHILS % (AUTO) 1 % (0-3); EOSINOPHILS % (AUTO) 2 % (0-9); HEMATOCRIT 35 % (35-47); MEAN CORPUSCULAR HGB CONC 33.3 gm/dl (32.0-36.0); MEAN CORPUSCULAR VOLUME 87 fL (81-99); MONOCYTES % (AUTO) 7.3 % (0-12); NEUTROPHILS % (AUTO) 67.1 % (37-80)
[2018-02-20 11:59] VITALS: TEMP 97
[2018-02-20 12:08] LABS: CALCIUM 8.9 mg/dl (8.5-10.1); GLOM FILT RATE 84 mL/min (>60); POTASSIUM 3.4 mMol/L (3.5-5.1); SODIUM 143 mMol/L (136-145)
[2018-02-20 12:28] VITALS: RESP 18
[2018-02-20 12:45] VITALS: BP 144/117; PULSE 87; O2SAT 99
== END 2018-02-20 12:50 | disposition short-term general hospital (02) | DRG 309 ==
LOC: ED 11:43
DX: I44.30 Unspecified atrioventricular block (principal); Z94.0 Kidney transplant status; E11.649 Type 2 diabetes mellitus with hypoglycemia without coma; I48.91 Unspecified atrial fibrillation; R41.0 Disorientation, unspecified; Z79.4 Long term (current) use of insulin
CPT/HCPCS: 80048; 80162; 82962; 84484; 85025; 93005; 99291

== ENCOUNTER 2018-04-07 23:20 | Inpatient (IN) | payer MEDICARE, BC ==
[2018-04-08 00:10] LABS: HEMATOCRIT 26 % (35-47); HEMOGLOBIN 8.6 gm/dl (12.0-15.5); MEAN CORPUSCULAR HEMOGLOBIN 28.9 pg (27.0-32.0); MEAN CORPUSCULAR HGB CONC 33.4 gm/dl (32.0-36.0); MEAN CORPUSCULAR VOLUME 87 fL (81-99)
[2018-04-08 00:21] LABS: ALBUMIN 2.6 gm/dl (3.4-5.0); BILIRUBIN,DIRECT 0.3 mg/dl (0.0-0.2); CALCIUM 7.9 mg/dl (8.5-10.1); CARBON DIOXIDE 22.8 mEq/L (21-32); CREATININE 1.11 mg/dl (0.60-1.00); TOTAL PROTEIN 5.3 gm/dl (6.4-8.2)
[2018-04-08 00:39] LABS: APPEARANCE,URINE Slightly Cloudy; BILIRUBIN,URINE NEGATIVE (NEGATIVE); COLOR,URINE Yellow; GLUCOSE, URINE (UA) NEGATIVE (NEGATIVE); KETONES,URINE NEGATIVE (NEGATIVE); LEUKOCYTE ESTERASE ,URINE 2+ (NEGATIVE); NITRATE,URINE NEGATIVE (NEGATIVE); OCCULT BLOOD,URINE 2+ (NEG-TRACE); UROBILINOGEN,URINE 0.2 (0.2-1.0 EU)
[2018-04-08 00:44] LABS: BACTERIA 2+ (< 1+); CRYSTALS NEGATIVE (0-3 AVE/HPF); EPITHELIAL CELLS 0-3 (SQUAMOUS); WBC,URINE 110-120 (0-5AV/HPF)
[2018-04-08 00:55] LABS: NEUTROPHILS % (MANUAL) 66 % (37-80)
[2018-04-08 00:56] LABS: BAND NEUTROPHILS % (MANUAL) 12 %; BASOPHILS % (MANUAL) 0 % (0-3); EOSINOPHILS % (MANUAL) 0 % (0-9); LYMPHOCYTES % (MANUAL) 14 % (10-50); MONOCYTES % (MANUAL) 8 % (0-12); NORMAL RBCS PRESENT
[2018-04-08] MEDS ORDERED: CIPROFLOXACIN HCL 500 MG TAB PO SCH (01:00)
[2018-04-08] MEDS ORDERED: KETOCONAZOLE CREAM 2% CRE TP PRN (01:31)
[2018-04-08] MEDS ORDERED: DOCUSATE SODIUM 100 MG SGL PO PRN (01:31)
[2018-04-08] MEDS ORDERED: NYSTATIN APPL TOP PRN (01:31)
[2018-04-08] MEDS ORDERED: DM/GUAIFENESIN SYRUP 10 ML SYRP PO PRN (01:31)
[2018-04-08] MEDS ORDERED: POLYETHYLENE GLYCOL 17 GM/1 TBS PDS PO PRN (01:31)
[2018-04-08] MEDS ORDERED: LOPERAMIDE HYDROCHLORIDE 2 MG CAP PO PRN (01:31)
[2018-04-08] MEDS ORDERED: APAP/CODEINE 300/30 TAB PO PRN (01:31)
[2018-04-08] MEDS ORDERED: DIPHENHYDRAMINE 25 MG CAP PO PRN (01:43)
[2018-04-08] MEDS ORDERED: CEFTRIAXONE 1 GM (PREMIX) 1 GM/50 ML SOL IV SCH (01:45)
[2018-04-08] MEDS ORDERED: PREDNISONE 5 MG TAB PO SCH (01:45)
[2018-04-08] MEDS ORDERED: CEFTRIAXONE 1 GM PDS ONE (01:59)
[2018-04-08] MEDS: SODIUM CHLORIDE 0.9% 1000ML 1,000 ML IV SCH ×3 (02:15→22:24)
[2018-04-08 02:18] VITALS: RESP 16
[2018-04-08] MEDS: SODIUM CHLORIDE 0.9% FLUSH 10 ML SOL IV SCH ×4 (02:22→18:08)
[2018-04-08] MEDS: ACETAMINOPHEN 500 MG 500 MG TAB PO PRN ×2 (02:23→07:58)
[2018-04-08] MEDS ORDERED: CEFTRIAXONE 1 GM PDS 1 GM in SODIUM CHLORIDE 0.9% 50 ML 50 ML IV SCH (02:30)
[2018-04-08 08:28] LABS: HEMATOCRIT 28 % (35-47); HEMOGLOBIN 9.2 gm/dl (12.0-15.5); MEAN CORPUSCULAR HEMOGLOBIN 28.4 pg (27.0-32.0); MEAN CORPUSCULAR HGB CONC 32.3 gm/dl (32.0-36.0); MEAN CORPUSCULAR VOLUME 88 fL (81-99)
[2018-04-08 08:37] LABS: CALCIUM 7.9 mg/dl (8.5-10.1); CARBON DIOXIDE 23.1 mEq/L (21-32); CREATININE 1.11 mg/dl (0.60-1.00)
[2018-04-08 08:40] LABS: LACTIC ACID 1.8 mMol/L (0.0-2.0)
[2018-04-08] MEDS ORDERED: LACTOBACILLUS COMBO NO 10 PO SCH (09:00)
[2018-04-08] MEDS ORDERED: [UNRECOGNIZED DRUG - OTHER] PO SCH (09:00)
[2018-04-08] MEDS: BRIMONIDINE 0.2% EACHEYE SCH ×3 (09:08→22:15)
[2018-04-08] MEDS: MYCOPHENOLATE 250 MG PO SCH ×2 (09:09→22:19)
[2018-04-08] MEDS: MULTIVITAMIN2 1 EA TAB PO SCH (09:11)
[2018-04-08] MEDS: MYCOPHENOLATE 500 MG PO SCH ×2 (09:11→22:19)
[2018-04-08] MEDS: PREDNISONE 5 MG TAB PO SCH (09:11)
[2018-04-08] MEDS: CHOLECALCIFEROL 1,000 IU TAB PO SCH (09:12)
[2018-04-08] MEDS: INSULIN GLARGINE, RECOMBINAN 100 U/ML SOL SC SCH ×2 (09:14→22:08)
[2018-04-08] MEDS: HUMALOG PEN 100 U/ML SC SCH ×2 (09:15→12:48)
[2018-04-08 09:35] LABS: ANISOCYTOSIS SLIGHT AMT; BAND NEUTROPHILS % (MANUAL) 9 %; BASOPHILS % (MANUAL) 0 % (0-3); EOSINOPHILS % (MANUAL) 0 % (0-9); LYMPHOCYTES % (MANUAL) 14 % (10-50); MONOCYTES % (MANUAL) 6 % (0-12); NEUTROPHILS % (MANUAL) 71 % (37-80); OVALOCYTES PRESENT; POIKILOCYTOSIS SLIGHT AMT
[2018-04-08] MEDS ORDERED: FERROUS GLUCONATE 324 MG TABLET PO SCH (10:30)
[2018-04-08] MEDS: DABIGATRAN 75 MG PO SCH ×2 (11:58→22:20)
[2018-04-08] MEDS: TIMOLOL MALEATE 0.5% OPHTHAL SOL EACHEYE SCH ×2 (11:59→12:02)
[2018-04-08] MEDS: CALCIUM CARBONATE 500 MG TAB PO SCH (13:21)
[2018-04-08] MEDS: NOVOLOG FLEXPEN SC SCH ×2 (18:04→22:05)
[2018-04-08] MEDS ORDERED: INSULIN HUMAN REGULAR 100 U/ML SOL IV ONE (19:40)
[2018-04-08] MEDS: LATANOPROST 0.005% SOL EACHEYE SCH (22:18)
[2018-04-08] MEDS: ACETAMINOPHEN 325 MG PO SCH (22:23)
[2018-04-09] MEDS: SODIUM CHLORIDE 0.9% FLUSH 10 ML SOL IV SCH ×3 (02:01→19:51)
[2018-04-09] MEDS ORDERED: CEFTRIAXONE 1 GM PDS ONE ×2 (02:03→23:22)
[2018-04-09] MEDS ORDERED: SODIUM CHLORIDE 0.9% 50 ML 50 ML IV ONE ×2 (02:03→23:22)
[2018-04-09] MEDS: CEFTRIAXONE 1 GM PDS 1 GM in SODIUM CHLORIDE 0.9% 50 ML 50 ML IV SCH (02:09)
[2018-04-09] MEDS ORDERED: NOVOLOG FLEXPEN SC SCH (07:00)
[2018-04-09] MEDS: CHOLECALCIFEROL 1,000 IU TAB PO SCH (09:25)
[2018-04-09] MEDS: MULTIVITAMIN2 1 EA TAB PO SCH (09:26)
[2018-04-09] MEDS: SODIUM CHLORIDE 0.9% 1000ML 1,000 ML IV SCH ×2 (09:26→19:58)
[2018-04-09] MEDS: DABIGATRAN 75 MG PO SCH ×2 (09:27→20:00)
[2018-04-09] MEDS: NOVOLOG FLEXPEN SC SCH ×2 (09:27→14:10)
[2018-04-09] MEDS: MYCOPHENOLATE 250 MG PO SCH ×2 (09:28→18:57)
[2018-04-09] MEDS: MYCOPHENOLATE 500 MG PO SCH ×2 (09:28→18:57)
[2018-04-09] MEDS: BRIMONIDINE 0.2% EACHEYE SCH ×2 (09:28→18:57)
[2018-04-09] MEDS: TIMOLOL MALEATE 0.5% OPHTHAL SOL EACHEYE SCH (09:31)
[2018-04-09] MEDS: INSULIN GLARGINE, RECOMBINAN 100 U/ML SOL SC SCH ×2 (12:38→21:46)
[2018-04-09] MEDS: CALCIUM CARBONATE 500 MG TAB PO SCH (12:39)
[2018-04-09] MEDS: HUMALOG PEN 100 U/ML SC SCH ×2 (18:56→21:43)
[2018-04-09] MEDS: ACETAMINOPHEN 325 MG PO SCH (21:44)
[2018-04-09] MEDS: LATANOPROST 0.005% SOL EACHEYE SCH (21:45)
[2018-04-10] MEDS: CEFTRIAXONE 1 GM PDS 1 GM in SODIUM CHLORIDE 0.9% 50 ML 50 ML IV SCH (01:44)
[2018-04-10] MEDS: SODIUM CHLORIDE 0.9% FLUSH 10 ML SOL IV SCH ×3 (01:45→21:19)
[2018-04-10] MEDS: SODIUM CHLORIDE 0.9% 1000ML 1,000 ML IV SCH (05:58)
[2018-04-10] MEDS: HUMALOG PEN 100 U/ML SC SCH ×4 (07:51→21:13)
[2018-04-10] MEDS: DEXTROSE 50% 1 VIAL SOL IV ONE ×2 (07:56→09:18)
[2018-04-10] MEDS: INSULIN GLARGINE, RECOMBINAN 100 U/ML SOL SC SCH ×2 (09:48→21:15)
[2018-04-10] MEDS: BRIMONIDINE 0.2% EACHEYE SCH ×2 (09:49→17:43)
[2018-04-10] MEDS: MYCOPHENOLATE 250 MG PO SCH ×2 (09:49→17:43)
[2018-04-10] MEDS: MYCOPHENOLATE 500 MG PO SCH ×2 (09:50→17:44)
[2018-04-10] MEDS: DABIGATRAN 75 MG PO SCH ×3 (09:50→21:18)
[2018-04-10] MEDS: TIMOLOL MALEATE 0.5% OPHTHAL SOL EACHEYE SCH (09:51)
[2018-04-10] MEDS: PREDNISONE 5 MG TAB PO SCH (09:53)
[2018-04-10] MEDS: MULTIVITAMIN2 1 EA TAB PO SCH (09:53)
[2018-04-10] MEDS: CHOLECALCIFEROL 1,000 IU TAB PO SCH (11:37)
[2018-04-10] MEDS: CIPROFLOXACIN HCL 500 MG TAB PO SCH ×2 (11:38→21:17)
[2018-04-10] MEDS: CALCIUM CARBONATE 500 MG TAB PO SCH (12:39)
[2018-04-10] MEDS ORDERED: CHOLECALCIFEROL 1,000 IU TAB PO SCH (21:00)
[2018-04-10] MEDS: ACETAMINOPHEN 325 MG PO SCH (21:18)
[2018-04-10] MEDS: LATANOPROST 0.005% SOL EACHEYE SCH (21:19)
[2018-04-11] MEDS: SODIUM CHLORIDE 0.9% FLUSH 10 ML SOL IV SCH ×2 (01:18→08:45)
[2018-04-11 08:40] VITALS: BP 134/82; PULSE 67; TEMP 98.7; O2SAT 98
[2018-04-11] MEDS: BRIMONIDINE 0.2% EACHEYE SCH (08:42)
[2018-04-11] MEDS: HUMALOG PEN 100 U/ML SC SCH (08:42)
[2018-04-11] MEDS: MYCOPHENOLATE 250 MG PO SCH (08:43)
[2018-04-11] MEDS: INSULIN GLARGINE, RECOMBINAN 100 U/ML SOL SC SCH (08:43)
[2018-04-11] MEDS: MYCOPHENOLATE 500 MG PO SCH (08:43)
[2018-04-11] MEDS: DABIGATRAN 75 MG PO SCH (08:44)
[2018-04-11] MEDS: MULTIVITAMIN2 1 EA TAB PO SCH (08:45)
[2018-04-11] MEDS: CIPROFLOXACIN HCL 500 MG TAB PO SCH (08:45)
[2018-04-11] MEDS: TIMOLOL MALEATE 0.5% OPHTHAL SOL EACHEYE SCH (08:45)
== END 2018-04-11 12:40 | disposition home health service (06) | DRG 690 ==
LOC: ED 23:20 → ACUTE CARE 04-08 01:25
PROVIDERS: ADMIT Emergency Medicine; ATTEND Emergency Medicine
PROC: F01M5ZZ Range of Motion and Joint Integrity Assessment of Musculoskeletal System - Whole Body (ICD-10-PCS; principal; 2018-04-09)
PROC: F01 Physical Rehabilitation and Diagnostic Audiology, Rehabilitation, Motor and/or Nerve Function Assessment (ICD-10-PCS; 2018-04-09)
PROC: F01ZDFZ Gait and/or Balance Assessment using Assistive, Adaptive, Supportive or Protective Equipment (ICD-10-PCS; 2018-04-09)
DX: N39.0 Urinary tract infection, site not specified (principal); I48.91 Unspecified atrial fibrillation; L89.322 Pressure ulcer of left buttock, stage 2; L89.311 Pressure ulcer of right buttock, stage 1; R05 Cough; Z94.0 Kidney transplant status; E11.9 Type 2 diabetes mellitus without complications; R53.1 Weakness; Z79.4 Long term (current) use of insulin
CPT/HCPCS: 36415; 71045; 80048; 80076; 81001; 82962; 85007; 85027; 87040; 87077; 87088; 87186; 93005; 99070; 99222; 99232; 99284; J0696; J1815; J1817; A6232; A9270-GY

== ENCOUNTER 2018-04-12 09:25 | Emergency (ER) | payer MEDICARE, BC ==
[2018-04-12 09:43] VITALS: RESP 18; O2SAT 100
[2018-04-12] MEDS ORDERED: SODIUM CHLORIDE 0.9% 250 ML SOL IV ONE (10:00)
[2018-04-12] MEDS ORDERED: TDAP VACCINE 0.5 ML SUS IM ONE ×2 (10:37→11:46)
[2018-04-12 11:03] LABS: CALCIUM 8.3 mg/dl (8.5-10.1); CARBON DIOXIDE 22.4 mEq/L (21-32); CREATININE 0.68 mg/dl (0.60-1.00); POTASSIUM 4.4 mMol/L (3.5-5.1)
[2018-04-12 11:04] LABS: ALBUMIN 2.3 gm/dl (3.4-5.0); TOTAL PROTEIN 5.4 gm/dl (6.4-8.2)
[2018-04-12 11:32] LABS: HEMATOCRIT 26 % (35-47); MEAN CORPUSCULAR HEMOGLOBIN 29.1 pg (27.0-32.0); MEAN CORPUSCULAR HGB CONC 33.9 gm/dl (32.0-36.0); MEAN CORPUSCULAR VOLUME 86 fL (81-99)
[2018-04-12 11:51] LABS: BAND NEUTROPHILS % (MANUAL) 8 %; BASOPHILS % (MANUAL) 0 % (0-3); EOSINOPHILS % (MANUAL) 1 % (0-9); LYMPHOCYTES % (MANUAL) 17 % (10-50); MONOCYTES % (MANUAL) 2 % (0-12); NEUTROPHILS % (MANUAL) 72 % (37-80)
[2018-04-12 11:52] LABS: POIKILOCYTOSIS SLIGHT AMT; SPHEROCYTES PRESENT
[2018-04-12 12:13] LABS: APPEARANCE,URINE Clear; BILIRUBIN,URINE NEGATIVE (NEGATIVE); COLOR,URINE Yellow; GLUCOSE, URINE (UA) NEGATIVE (NEGATIVE); KETONES,URINE TRACE (NEGATIVE); LEUKOCYTE ESTERASE ,URINE 1+ (NEGATIVE); NITRATE,URINE NEGATIVE (NEGATIVE); OCCULT BLOOD,URINE 1+ (NEG-TRACE); UROBILINOGEN,URINE 0.2 (0.2-1.0 EU)
[2018-04-12 12:22] LABS: BACTERIA 1+ (< 1+); CRYSTALS NEGATIVE (0-3 AVE/HPF); RBC,URINE 0-2 (0-3AV/HPF)
[2018-04-12 17:53] VITALS: BP 138/63; PULSE 94; TEMP 99
== END 2018-04-12 17:50 | DRG 605 ==
LOC: ED 09:25
DX: S70.11XA Contusion of right thigh, initial encounter (principal); I48.91 Unspecified atrial fibrillation; E86.0 Dehydration; E11.9 Type 2 diabetes mellitus without complications; N39.0 Urinary tract infection, site not specified; Z94.0 Kidney transplant status; L98.9 Disorder of the skin and subcutaneous tissue, unspecified; R40.2142 Coma scale, eyes open, spontaneous, at arrival to emergency department; Z79.4 Long term (current) use of insulin; W06.XXXA Fall from bed, initial encounter; R40.2362 Coma scale, best motor response, obeys commands, at arrival to emergency department; R40.2252 Coma scale, best verbal response, oriented, at arrival to emergency department
CPT/HCPCS: 70450; 73060; 73562; 80053; 81001; 82550; 83880; 85007; 85027; 87088; 90471; 90715; 96365; 99284; 99285; A6232

== ENCOUNTER 2018-06-21 13:34 | Outpatient (CLI) | payer MEDICARE, BC ==
[2018-06-05 14:36] VITALS: O2SAT 99
== END 2018-06-21 13:35 | disposition home or self-care (01) | DRG 563 ==
LOC: CONVCARE 13:34
PROVIDERS: ATTEND Orthopaedic Surgery
DX: S66.312A Strain of extensor muscle, fascia and tendon of right middle finger at wrist and hand level, initial encounter (principal); M25.552 Pain in left hip
CPT/HCPCS: 73502; 73700

== ENCOUNTER 2018-07-19 09:16 | Outpatient (CLI) | payer MEDICARE, BC ==
[2018-07-10 10:01] VITALS: O2SAT 98
== END 2018-07-19 09:17 | disposition home or self-care (01) | DRG 556 ==
LOC: CONVCARE 09:16
PROVIDERS: ATTEND Orthopaedic Surgery
DX: M25.552 Pain in left hip (principal)

== ENCOUNTER 2018-11-15 09:48 | Inpatient (IN) | payer MEDICARE, BC ==
[2018-11-15 10:12] LABS: CARBON DIOXIDE 18.3 mEq/L (21-32); CREATININE 2.07 mg/dl (0.60-1.00)
[2018-11-15 10:14] LABS: POTASSIUM 6.2 mMol/L (3.5-5.1)
[2018-11-15] MEDS ORDERED: DEXTROSE 50% 1 VIAL SOL IV ONE ×2 (10:18→10:33)
[2018-11-15] MEDS ORDERED: INSULIN HUMAN REGULAR 100 U/ML SOL IV ONE (10:19)
[2018-11-15] MEDS ORDERED: INSULIN HUMAN REGULAR 100 U/ML SOL ONE (10:47)
[2018-11-15] MEDS ORDERED: SODIUM CHLORIDE 0.9% 1000ML 1,000 ML IV ONE (10:52)
[2018-11-15] MEDS ORDERED: SODIUM POLYSTYRENE SULFONATE 15 GM/60 ML SUS ONE (11:01)
[2018-11-15] MEDS: SODIUM POLYSTYRENE SULFONATE 15 GM/60 ML SUS PO SCH ×4 (11:30→21:34)
[2018-11-15] MEDS ORDERED: POLYETHYLENE GLYCOL 17 GM/1 TBS PDS PO PRN (13:31)
[2018-11-15] MEDS ORDERED: ACETAMINOPHEN 325 MG PO PRN (13:31)
[2018-11-15] MEDS: SODIUM CHLORIDE 0.9% 1000ML 1,000 ML IV SCH (14:28)
[2018-11-15] MEDS: PREDNISONE 5 MG TAB PO SCH ×2 (14:57→18:52)
[2018-11-15] MEDS ORDERED: HUMALOG PEN 100 U/ML SC SCH ×2 (17:00→17:30)
[2018-11-15] MEDS: APIXABAN 5 MG PO SCH (18:51)
[2018-11-15] MEDS ORDERED: METOPROLOL SUCCINATE 50 MG ER TAB PO SCH (21:00)
[2018-11-15] MEDS ORDERED: LATANOPROST 0.005% SOL EACHEYE SCH (21:00)
[2018-11-15] MEDS ORDERED: ACETAMINOPHEN 325 MG PO SCH (21:00)
[2018-11-15] MEDS: BRIMONIDINE 0.2% EACHEYE SCH (21:31)
[2018-11-15] MEDS: HUMALOG PEN 100 U/ML SC SCH (21:50)
[2018-11-15] MEDS: INSULIN GLARGINE, RECOMBINAN 100 U/ML SOL SC SCH (22:05)
[2018-11-16] MEDS: SODIUM CHLORIDE 0.9% 1000ML 1,000 ML IV SCH (00:33)
[2018-11-16 00:39] VITALS: RESP 14; O2SAT 100
[2018-11-16 07:28] LABS: CALCIUM 8.4 mg/dl (8.5-10.1); CARBON DIOXIDE 19.5 mEq/L (21-32); CREATININE 1.51 mg/dl (0.60-1.00); POTASSIUM 4.4 mMol/L (3.5-5.1)
[2018-11-16 08:10] VITALS: BP 110/49; PULSE 68; TEMP 98.6
[2018-11-16] MEDS ORDERED: APAP/CODEINE 1 EACH TABLET PO PRN ×2 (08:19)
[2018-11-16] MEDS ORDERED: TIMOLOL MALEATE 0.5% OPHTHAL SOL EACHEYE SCH (09:00)
[2018-11-16] MEDS ORDERED: LISINOPRIL 5 MG TAB PO SCH (09:00)
[2018-11-16] MEDS ORDERED: ATORVASTATIN 10 MG TAB PO SCH (09:00)
[2018-11-16] MEDS ORDERED: PREDNISONE 5 MG TAB PO SCH (09:00)
[2018-11-16] MEDS ORDERED: FUROSEMIDE 40 MG TAB PO SCH (09:00)
[2018-11-16] MEDS: HUMALOG PEN 100 U/ML SC SCH (09:28)
[2018-11-16] MEDS: SODIUM POLYSTYRENE SULFONATE 15 GM/60 ML SUS PO SCH (09:29)
[2018-11-16] MEDS: BRIMONIDINE 0.2% EACHEYE SCH (09:30)
[2018-11-16] MEDS: INSULIN GLARGINE, RECOMBINAN 100 U/ML SOL SC SCH (09:32)
[2018-11-16] MEDS: APIXABAN 5 MG PO SCH (09:34)
== END 2018-11-16 11:30 | DRG 641 ==
LOC: ED 09:48 → ACUTE CARE 12:00
PROVIDERS: ADMIT Family Medicine; ATTEND Family Medicine
DX: E87.5 Hyperkalemia (principal); N17.9 Acute kidney failure, unspecified; Z94.0 Kidney transplant status; E11.9 Type 2 diabetes mellitus without complications; Z79.4 Long term (current) use of insulin; I10 Essential (primary) hypertension
CPT/HCPCS: 36415; 80048; 82962; 84132; 93005; 93012; 96365; 96374; 96375; 99283; 99284; J1815; J1817; A9270; A9270-GY

== ENCOUNTER 2019-01-17 06:38 | Inpatient (IN) | payer MEDICARE, BC ==
[2019-01-17 06:57] LABS: CALCIUM 8.5 mg/dl (8.5-10.1); CARBON DIOXIDE 28.7 mEq/L (21-32); CREATININE 1.17 mg/dl (0.60-1.00); POTASSIUM 4.8 mMol/L (3.5-5.1)
[2019-01-17] MEDS ORDERED: APAP/CODEINE 1 EACH TABLET PO ONE (07:21)
[2019-01-17] MEDS ORDERED: APAP/CODEINE 1 EACH TABLET ONE (07:23)
[2019-01-17] MEDS ORDERED: TRIAMCINOLONE 0.1% CREAM CRE TOP ONE (09:16)
[2019-01-17] MEDS: TRIAMCINOLONE 0.1% CREAM CRE TOP SCH ×3 (10:00→21:44)
[2019-01-17] MEDS ORDERED: GUAIFENESIN PO PRN (10:51)
[2019-01-17] MEDS ORDERED: DOCUSATE SODIUM 100 MG SGL PO PRN (10:51)
[2019-01-17] MEDS ORDERED: POLYETHYLENE GLYCOL 17 GM/1 TBS PDS PO PRN (10:51)
[2019-01-17] MEDS ORDERED: CLOTRIMAZOLE 1% CREAM TOP PRN (10:51)
[2019-01-17] MEDS ORDERED: KETOCONAZOLE CREAM 2% CRE TP PRN (10:51)
[2019-01-17] MEDS: APAP/CODEINE 1 EACH TABLET PO PRN (12:48)
[2019-01-17] MEDS: FERROUS GLUCONATE 324 MG TABLET PO SCH (13:38)
[2019-01-17] MEDS: PREDNISONE 5 MG TAB PO SCH (13:38)
[2019-01-17] MEDS: HUMALOG PEN 100 U/ML SC SCH ×3 (13:39→21:34)
[2019-01-17] MEDS: NYSTATIN 1 GM POW TOP SCH ×2 (18:34→21:26)
[2019-01-17 19:34] LABS: BASOPHILS % (AUTO) 0 % (0-3); EOSINOPHILS % (AUTO) 0 % (0-9); HEMATOCRIT 28 % (35-47); HEMOGLOBIN 8.6 gm/dl (12.0-15.5); LYMPHOCYTES % (AUTO) 14.5 % (10-50); MEAN CORPUSCULAR HEMOGLOBIN 27.6 pg (27.0-32.0); MEAN CORPUSCULAR HGB CONC 30.3 gm/dl (32.0-36.0); MEAN CORPUSCULAR VOLUME 91 fL (81-99); MONOCYTES % (AUTO) 3.7 % (0-12); NEUTROPHILS % (AUTO) 81.4 % (37-80)
[2019-01-17 19:39] LABS: APPEARANCE,URINE Cloudy; BILIRUBIN,URINE NEGATIVE (NEGATIVE); COLOR,URINE Dark yellow; GLUCOSE, URINE (UA) NEGATIVE (NEGATIVE); KETONES,URINE NEGATIVE (NEGATIVE); LEUKOCYTE ESTERASE ,URINE 2+ (NEGATIVE); NITRATE,URINE NEGATIVE (NEGATIVE); OCCULT BLOOD,URINE 3+ (NEG-TRACE); PH,URINE 5.5; UROBILINOGEN,URINE 0.2 (0.2-1.0 EU)
[2019-01-17 19:50] LABS: BACTERIA 3+ (< 1+); CRYSTALS NEGATIVE (0-3 AVE/HPF); RBC,URINE 125-175 (0-3AV/HPF); WBC,URINE 100-150 (0-5AV/HPF)
[2019-01-17] MEDS ORDERED: INSULIN GLARGINE, RECOMBINAN 100 U/ML SOL SC SCH (21:00)
[2019-01-17] MEDS ORDERED: METOPROLOL SUCCINATE 50 MG ER TAB PO SCH (21:00)
[2019-01-17] MEDS ORDERED: SODIUM CHLORIDE 0.9% 50 ML 50 ML IV ONE (21:01)
[2019-01-17] MEDS ORDERED: CEFAZOLIN SODIUM 1 GM PDS ONE (21:01)
[2019-01-17] MEDS: CEFAZOLIN SODIUM 1 GM PDS 1 GM in SODIUM CHLORIDE 0.9% 50 ML 50 ML IV SCH (21:09)
[2019-01-17] MEDS: APIXABAN 5 MG PO SCH (21:23)
[2019-01-17] MEDS: MYCOPHENOLATE 250 MG PO SCH (21:24)
[2019-01-17] MEDS: BRIMONIDINE 0.2% EACHEYE SCH (21:25)
[2019-01-17] MEDS: ATORVASTATIN 10 MG TAB PO SCH (21:25)
[2019-01-17] MEDS: LATANOPROST 0.005% SOL EACHEYE SCH (21:26)
[2019-01-17] MEDS: ACETAMINOPHEN 325 MG PO SCH (21:26)
[2019-01-17] MEDS: SODIUM CHLORIDE 0.9% FLUSH 10 ML SOL IV SCH (21:34)
[2019-01-17] MEDS: METOPROLOL SUCCINATE 50 MG ER TAB PO SCH (21:36)
[2019-01-17] MEDS: MUPIROCIN OIN TP SCH (21:37)
[2019-01-18] MEDS ORDERED: SODIUM CHLORIDE 0.9% 50 ML 50 ML IV ONE ×4 (02:40→19:42)
[2019-01-18] MEDS ORDERED: CEFAZOLIN SODIUM 1 GM PDS ONE ×4 (02:40→19:41)
[2019-01-18] MEDS: SODIUM CHLORIDE 0.9% FLUSH 10 ML SOL IV SCH ×4 (02:45→19:51)
[2019-01-18] MEDS: CEFAZOLIN SODIUM 1 GM PDS 1 GM in SODIUM CHLORIDE 0.9% 50 ML 50 ML IV SCH ×4 (02:45→19:50)
[2019-01-18 07:17] LABS: BASOPHILS % (AUTO) 1 % (0-3); EOSINOPHILS % (AUTO) 0 % (0-9); HEMATOCRIT 29 % (35-47); HEMOGLOBIN 9.1 gm/dl (12.0-15.5); LYMPHOCYTES % (AUTO) 18.8 % (10-50); MEAN CORPUSCULAR HEMOGLOBIN 28.3 pg (27.0-32.0); MEAN CORPUSCULAR HGB CONC 31.6 gm/dl (32.0-36.0); MEAN CORPUSCULAR VOLUME 90 fL (81-99); MONOCYTES % (AUTO) 7.9 % (0-12); NEUTROPHILS % (AUTO) 72.5 % (37-80)
[2019-01-18 07:19] LABS: CALCIUM 8.2 mg/dl (8.5-10.1); CARBON DIOXIDE 25.9 mEq/L (21-32); CREATININE 1.33 mg/dl (0.60-1.00); POTASSIUM 4.8 mMol/L (3.5-5.1)
[2019-01-18] MEDS: HUMALOG PEN 100 U/ML SC SCH ×4 (10:18→20:55)
[2019-01-18] MEDS: TRIAMCINOLONE 0.1% CREAM CRE TOP SCH ×2 (10:19→20:57)
[2019-01-18] MEDS: BRIMONIDINE 0.2% EACHEYE SCH ×2 (10:22→21:28)
[2019-01-18] MEDS: SULFAMETHOXAZOLE/TRIMETHOPRI 800/160 MG PO SCH (10:24)
[2019-01-18] MEDS: APIXABAN 5 MG PO SCH ×2 (10:24→21:19)
[2019-01-18] MEDS: MYCOPHENOLATE 250 MG PO SCH ×2 (10:25→21:18)
[2019-01-18] MEDS: BUMETANIDE 1 MG TAB PO SCH (10:25)
[2019-01-18] MEDS: NYSTATIN 1 GM POW TOP SCH ×2 (10:27→20:47)
[2019-01-18] MEDS: TIMOLOL MALEATE 0.5% OPHTHAL SOL EACHEYE SCH (10:28)
[2019-01-18] MEDS: MULTIVITAMIN2 1 EA TAB PO SCH (10:28)
[2019-01-18] MEDS: CHOLECALCIFEROL 1,000 IU TAB PO SCH (10:29)
[2019-01-18] MEDS: METOLAZONE 2.5 MG TABLET PO SCH (10:30)
[2019-01-18] MEDS: LISINOPRIL 5 MG TAB PO SCH (10:31)
[2019-01-18] MEDS: ACETAMINOPHEN 325 MG PO PRN (12:22)
[2019-01-18] MEDS: FERROUS GLUCONATE 324 MG TABLET PO SCH (12:22)
[2019-01-18] MEDS: ATORVASTATIN 10 MG TAB PO SCH (21:06)
[2019-01-18] MEDS: METOPROLOL SUCCINATE 50 MG ER TAB PO SCH (21:07)
[2019-01-18] MEDS: ACETAMINOPHEN 325 MG PO SCH (21:08)
[2019-01-18] MEDS: LATANOPROST 0.005% SOL EACHEYE SCH (21:26)
[2019-01-18] MEDS: MUPIROCIN OIN TP SCH (21:28)
[2019-01-19] MEDS ORDERED: SODIUM CHLORIDE 0.9% 50 ML 50 ML IV ONE ×3 (02:11→21:46)
[2019-01-19] MEDS ORDERED: CEFAZOLIN SODIUM 1 GM PDS ONE ×4 (02:11→21:46)
[2019-01-19] MEDS: CEFAZOLIN SODIUM 1 GM PDS 1 GM in SODIUM CHLORIDE 0.9% 50 ML 50 ML IV SCH ×4 (02:16→22:03)
[2019-01-19] MEDS: SODIUM CHLORIDE 0.9% FLUSH 10 ML SOL IV SCH ×4 (02:52→23:16)
[2019-01-19 08:21] LABS: HEMATOCRIT 27 % (35-47); HEMOGLOBIN 8.3 gm/dl (12.0-15.5); MEAN CORPUSCULAR HEMOGLOBIN 27.7 pg (27.0-32.0); MEAN CORPUSCULAR HGB CONC 31.1 gm/dl (32.0-36.0); MEAN CORPUSCULAR VOLUME 89 fL (81-99)
[2019-01-19 08:29] LABS: CALCIUM 8.1 mg/dl (8.5-10.1); CARBON DIOXIDE 24.5 mEq/L (21-32); CREATININE 1.43 mg/dl (0.60-1.00); POTASSIUM 4.3 mMol/L (3.5-5.1)
[2019-01-19 09:11] LABS: ANISOCYTOSIS SLIGHT AMT; BAND NEUTROPHILS % (MANUAL) 8 %; BASOPHILS % (MANUAL) 0 % (0-3); EOSINOPHILS % (MANUAL) 0 % (0-9); LYMPHOCYTES % (MANUAL) 10 % (10-50); MONOCYTES % (MANUAL) 4 % (0-12); NEUTROPHILS % (MANUAL) 78 % (37-80)
[2019-01-19] MEDS: BRIMONIDINE 0.2% EACHEYE SCH ×2 (09:31→22:49)
[2019-01-19] MEDS: SULFAMETHOXAZOLE/TRIMETHOPRI 800/160 MG PO SCH (09:32)
[2019-01-19] MEDS: APIXABAN 5 MG PO SCH ×2 (09:32→22:06)
[2019-01-19] MEDS: BUMETANIDE 1 MG TAB PO SCH (09:35)
[2019-01-19] MEDS: TRIAMCINOLONE 0.1% CREAM CRE TOP SCH ×2 (09:36→22:49)
[2019-01-19] MEDS: MYCOPHENOLATE 250 MG PO SCH ×2 (09:36→22:07)
[2019-01-19] MEDS: NYSTATIN 1 GM POW TOP SCH ×2 (09:36→22:15)
[2019-01-19] MEDS: MULTIVITAMIN2 1 EA TAB PO SCH (09:36)
[2019-01-19] MEDS: TIMOLOL MALEATE 0.5% OPHTHAL SOL EACHEYE SCH (09:37)
[2019-01-19] MEDS: CHOLECALCIFEROL 1,000 IU TAB PO SCH (09:38)
[2019-01-19] MEDS: METOLAZONE 2.5 MG TABLET PO SCH (09:39)
[2019-01-19] MEDS: LISINOPRIL 5 MG TAB PO SCH (09:40)
[2019-01-19] MEDS: PREDNISONE 5 MG TAB PO SCH ×2 (09:41→11:38)
[2019-01-19] MEDS: HUMALOG PEN 100 U/ML SC SCH ×4 (09:45→22:08)
[2019-01-19] MEDS: INSULIN GLARGINE, RECOMBINAN 100 U/ML SOL SC SCH ×2 (09:45→22:09)
[2019-01-19] MEDS: APAP/CODEINE 1 EACH TABLET PO PRN (11:07)
[2019-01-19] MEDS: FERROUS GLUCONATE 324 MG TABLET PO SCH (12:25)
[2019-01-19] MEDS: ATORVASTATIN 10 MG TAB PO SCH (22:15)
[2019-01-19] MEDS: ACETAMINOPHEN 325 MG PO SCH (22:16)
[2019-01-19] MEDS: METOPROLOL SUCCINATE 50 MG ER TAB PO SCH (22:16)
[2019-01-19] MEDS: LATANOPROST 0.005% SOL EACHEYE SCH (22:17)
[2019-01-19] MEDS: MUPIROCIN OIN TP SCH (22:37)
[2019-01-20] MEDS ORDERED: SODIUM CHLORIDE 0.9% 50 ML 50 ML IV ONE ×2 (02:07→04:05)
[2019-01-20] MEDS ORDERED: CEFAZOLIN SODIUM 1 GM PDS ONE ×2 (02:07→04:05)
[2019-01-20] MEDS ORDERED: CEFAZOLIN SODIUM 1 GM PDS 1 GM in SODIUM CHLORIDE 0.9% 50 ML 50 ML IV SCH (02:30)
[2019-01-20] MEDS: CEFAZOLIN SODIUM 1 GM PDS 1 GM in SODIUM CHLORIDE 0.9% 50 ML 50 ML IV SCH ×5 (04:13→23:14)
[2019-01-20] MEDS: SODIUM CHLORIDE 0.9% FLUSH 10 ML SOL IV SCH ×3 (04:13→15:54)
[2019-01-20 07:58] LABS: CALCIUM 8.1 mg/dl (8.5-10.1); CARBON DIOXIDE 26.3 mEq/L (21-32); CREATININE 1.37 mg/dl (0.60-1.00)
[2019-01-20] MEDS: HUMALOG PEN 100 U/ML SC SCH ×4 (08:38→21:38)
[2019-01-20] MEDS: INSULIN GLARGINE, RECOMBINAN 100 U/ML SOL SC SCH ×2 (08:38→21:38)
[2019-01-20] MEDS: BRIMONIDINE 0.2% EACHEYE SCH ×2 (08:44→17:45)
[2019-01-20] MEDS: TIMOLOL MALEATE 0.5% OPHTHAL SOL EACHEYE SCH (08:45)
[2019-01-20] MEDS: TRIAMCINOLONE 0.1% CREAM CRE TOP SCH ×2 (08:46→23:13)
[2019-01-20] MEDS: MYCOPHENOLATE 250 MG PO SCH ×2 (08:48→17:41)
[2019-01-20] MEDS: APIXABAN 5 MG PO SCH ×2 (08:49→21:25)
[2019-01-20] MEDS: MULTIVITAMIN2 1 EA TAB PO SCH (08:51)
[2019-01-20] MEDS: CHOLECALCIFEROL 1,000 IU TAB PO SCH (08:51)
[2019-01-20] MEDS: BUMETANIDE 1 MG TAB PO SCH (08:52)
[2019-01-20] MEDS: NYSTATIN 1 GM POW TOP SCH ×2 (08:52→21:27)
[2019-01-20] MEDS: LISINOPRIL 5 MG TAB PO SCH (08:53)
[2019-01-20] MEDS: METOLAZONE 2.5 MG TABLET PO SCH ×2 (08:54→09:17)
[2019-01-20] MEDS: SULFAMETHOXAZOLE/TRIMETHOPRI 800/160 MG PO SCH (08:57)
[2019-01-20] MEDS: FERROUS GLUCONATE 324 MG TABLET PO SCH (12:18)
[2019-01-20] MEDS: CALCIUM CARBONATE 500 MG TAB PO SCH (12:21)
[2019-01-20] MEDS: ATORVASTATIN 10 MG TAB PO SCH (21:26)
[2019-01-20] MEDS: METOPROLOL SUCCINATE 50 MG ER TAB PO SCH (21:27)
[2019-01-20] MEDS: ACETAMINOPHEN 325 MG PO SCH (21:28)
[2019-01-20] MEDS: LATANOPROST 0.005% SOL EACHEYE SCH (21:32)
[2019-01-20] MEDS: CEPHALEXIN 250 MG/5 ML BOTTLE PO SCH (21:46)
[2019-01-20] MEDS: MUPIROCIN OIN TP SCH (23:13)
[2019-01-21] MEDS: APAP/CODEINE 1 EACH TABLET PO PRN (05:00)
[2019-01-21] MEDS: CEPHALEXIN 250 MG/5 ML BOTTLE PO SCH (07:07)
[2019-01-21 07:26] LABS: CALCIUM 8.6 mg/dl (8.5-10.1); CARBON DIOXIDE 28.7 mEq/L (21-32); CREATININE 1.2 mg/dl (0.60-1.00); POTASSIUM 4.4 mMol/L (3.5-5.1)
[2019-01-21] MEDS: HUMALOG PEN 100 U/ML SC SCH ×4 (08:27→21:48)
[2019-01-21] MEDS: MYCOPHENOLATE 250 MG PO SCH ×2 (08:34→17:18)
[2019-01-21] MEDS: INSULIN GLARGINE, RECOMBINAN 100 U/ML SOL SC SCH ×2 (08:35→21:47)
[2019-01-21] MEDS: BRIMONIDINE 0.2% EACHEYE SCH ×3 (08:36→17:19)
[2019-01-21] MEDS: SULFAMETHOXAZOLE/TRIMETHOPRI 800/160 MG PO SCH (08:36)
[2019-01-21] MEDS: BUMETANIDE 1 MG TAB PO SCH (08:37)
[2019-01-21] MEDS: CALCIUM CARBONATE 500 MG TAB PO SCH ×2 (08:38→11:30)
[2019-01-21] MEDS: CHOLECALCIFEROL 1,000 IU TAB PO SCH (08:38)
[2019-01-21] MEDS: DOCUSATE SODIUM 100 MG SGL PO SCH (08:38)
[2019-01-21] MEDS: TIMOLOL MALEATE 0.5% OPHTHAL SOL EACHEYE SCH (08:38)
[2019-01-21] MEDS: MULTIVITAMIN2 1 EA TAB PO SCH (08:38)
[2019-01-21] MEDS: ACETAMINOPHEN 325 MG PO PRN (08:39)
[2019-01-21] MEDS: LISINOPRIL 5 MG TAB PO SCH (08:39)
[2019-01-21] MEDS: METOLAZONE 2.5 MG TABLET PO SCH (08:39)
[2019-01-21] MEDS: NYSTATIN 1 GM POW TOP SCH ×2 (08:54→21:34)
[2019-01-21] MEDS: TRIAMCINOLONE 0.1% CREAM CRE TOP SCH ×2 (10:03→21:29)
[2019-01-21] MEDS: APIXABAN 5 MG PO SCH ×3 (10:11→21:30)
[2019-01-21] MEDS: CIPROFLOXACIN HCL 500 MG TAB PO SCH ×2 (10:15→21:35)
[2019-01-21] MEDS: PREDNISONE 5 MG TAB PO SCH (11:29)
[2019-01-21] MEDS: FERROUS GLUCONATE 324 MG TABLET PO SCH (11:30)
[2019-01-21] MEDS: ACETAMINOPHEN 325 MG PO SCH (21:32)
[2019-01-21] MEDS: METOPROLOL SUCCINATE 50 MG ER TAB PO SCH (21:33)
[2019-01-21] MEDS: ATORVASTATIN 10 MG TAB PO SCH (21:34)
[2019-01-21] MEDS: MUPIROCIN OIN TP SCH (21:37)
[2019-01-21] MEDS: LATANOPROST 0.005% SOL EACHEYE SCH (21:45)
[2019-01-22 05:45] VITALS: BP 115/73; PULSE 69; RESP 18; TEMP 97.7; O2SAT 99
[2019-01-22] MEDS: INSULIN GLARGINE, RECOMBINAN 100 U/ML SOL SC SCH (08:33)
[2019-01-22] MEDS: HUMALOG PEN 100 U/ML SC SCH ×2 (08:33→12:05)
[2019-01-22] MEDS: CHOLECALCIFEROL 1,000 IU TAB PO SCH (08:37)
[2019-01-22] MEDS: BUMETANIDE 1 MG TAB PO SCH (08:38)
[2019-01-22] MEDS: METOLAZONE 2.5 MG TABLET PO SCH (08:39)
[2019-01-22] MEDS: BRIMONIDINE 0.2% EACHEYE SCH (08:39)
[2019-01-22] MEDS: TIMOLOL MALEATE 0.5% OPHTHAL SOL EACHEYE SCH (08:39)
[2019-01-22] MEDS: APIXABAN 5 MG PO SCH (08:40)
[2019-01-22] MEDS: DOCUSATE SODIUM 100 MG SGL PO SCH (08:40)
[2019-01-22] MEDS: SULFAMETHOXAZOLE/TRIMETHOPRI 800/160 MG PO SCH (08:41)
[2019-01-22] MEDS: CALCIUM CARBONATE 500 MG TAB PO SCH ×2 (08:45→11:58)
[2019-01-22] MEDS: MYCOPHENOLATE 250 MG PO SCH (08:47)
[2019-01-22] MEDS: MULTIVITAMIN2 1 EA TAB PO SCH (08:48)
[2019-01-22] MEDS: PREDNISONE 5 MG TAB PO SCH (08:51)
[2019-01-22] MEDS: NYSTATIN 1 GM POW TOP SCH (09:00)
[2019-01-22] MEDS: TRIAMCINOLONE 0.1% CREAM CRE TOP SCH (09:00)
[2019-01-22 09:48] LABS: CALCIUM 8.9 mg/dl (8.5-10.1); CARBON DIOXIDE 31.9 mEq/L (21-32); CREATININE 1.23 mg/dl (0.60-1.00); POTASSIUM 4.1 mMol/L (3.5-5.1)
[2019-01-22] MEDS: FERROUS GLUCONATE 324 MG TABLET PO SCH (12:00)
[2019-01-22] MEDS: LISINOPRIL 5 MG TAB PO SCH (12:02)
[2019-01-22] MEDS: CIPROFLOXACIN HCL 500 MG TAB PO SCH (12:06)
== END 2019-01-22 14:30 | DRG 641 ==
LOC: ED 06:38 → ACUTE CARE 09:00
PROVIDERS: ADMIT Family Medicine; ATTEND Family Medicine
DX: E87.5 Hyperkalemia (principal); E11.9 Type 2 diabetes mellitus without complications; I10 Essential (primary) hypertension; I48.91 Unspecified atrial fibrillation; N30.00 Acute cystitis without hematuria; Z94.0 Kidney transplant status; E16.2 Hypoglycemia, unspecified; R60.1 Generalized edema; E11.649 Type 2 diabetes mellitus with hypoglycemia without coma; Z79.4 Long term (current) use of insulin; S51.812A Laceration without foreign body of left forearm, initial encounter; L30.4 Erythema intertrigo; B37.2 Candidiasis of skin and nail; L30.9 Dermatitis, unspecified; S41.111A Laceration without foreign body of right upper arm, initial encounter; L97.511 Non-pressure chronic ulcer of other part of right foot limited to breakdown of skin; D64.9 Anemia, unspecified; R41.0 Disorientation, unspecified; I50.9 Heart failure, unspecified; N18.9 Chronic kidney disease, unspecified; F03.90 Unspecified dementia, unspecified severity, without behavioral disturbance, psychotic disturbance, mood disturbance, and anxiety
CPT/HCPCS: 36415; 71045; 80048; 81001; 82962; 85007; 85018; 85025; 85027; 87040; 87077; 87088; 87186; 99213; 99222; 99232; 99282; J0690; J1815; J1817; A6232; A9270-GY

== ENCOUNTER 2019-02-07 16:47 | Inpatient (IN) | payer MEDICARE, BC ==
[2019-02-07] MEDS ORDERED: SODIUM CHLORIDE 0.9% 500 ML SOL IV SCH (17:15)
[2019-02-07] MEDS ORDERED: ONDANSETRON HCL 4 MG/2 ML SOL IV PRN (17:28)
[2019-02-07] MEDS ORDERED: POLYETHYLENE GLYCOL 17 GM/1 TBS PDS PO PRN ×2 (19:05→20:00)
[2019-02-07] MEDS ORDERED: ACETAMINOPHEN 500 MG 500 MG TAB PO PRN (19:05)
[2019-02-07] MEDS ORDERED: DOCUSATE SODIUM 100 MG SGL PO PRN ×2 (19:05→20:00)
[2019-02-07] MEDS ORDERED: APAP/CODEINE 1 EACH TABLET PO PRN (19:05)
[2019-02-07] MEDS ORDERED: HYDROCORTISONE SODIUM SUCCIN 100 MG PDS IV ONE (19:13)
[2019-02-07] MEDS ORDERED: LEVOFLOXACIN 25 MG/ML 500 MG in SODIUM CHLORIDE 0.9% 100 ML 100 ML IV ONE (20:03)
[2019-02-07] MEDS: SODIUM CHLORIDE 0.9% 1000ML 1,000 ML IV SCH (20:16)
[2019-02-07] MEDS: APIXABAN 5 MG PO SCH (20:45)
[2019-02-07] MEDS: METOPROLOL SUCCINATE 50 MG ER TAB PO SCH (20:47)
[2019-02-07] MEDS: BRIMONIDINE 0.2% EACHEYE SCH (20:47)
[2019-02-07] MEDS: INSULIN GLARGINE, RECOMBINAN 100 U/ML SOL SC SCH (21:04)
[2019-02-07] MEDS: HUMALOG PEN 100 U/ML SC SCH (21:08)
[2019-02-07] MEDS ORDERED: LEVOFLOXACIN 25 MG/ML SOL IV ONE (21:41)
[2019-02-07] MEDS ORDERED: SODIUM CHLORIDE 0.9% 100 ML 100 ML IV ONE (21:41)
[2019-02-08] MEDS: SODIUM CHLORIDE 0.9% 1000ML 1,000 ML IV SCH ×5 (05:30→22:45)
[2019-02-08 07:45] LABS: HEMATOCRIT 26 % (35-47); HEMOGLOBIN 8.2 gm/dl (12.0-15.5); MEAN CORPUSCULAR HEMOGLOBIN 27.6 pg (27.0-32.0); MEAN CORPUSCULAR HGB CONC 31.4 gm/dl (32.0-36.0); MEAN CORPUSCULAR VOLUME 88 fL (81-99)
[2019-02-08 07:50] LABS: APPEARANCE,URINE Clear; BILIRUBIN,URINE NEGATIVE (NEGATIVE); COLOR,URINE Yellow; GLUCOSE, URINE (UA) NEGATIVE (NEGATIVE); KETONES,URINE NEGATIVE (NEGATIVE); LEUKOCYTE ESTERASE ,URINE 2+ (NEGATIVE); NITRATE,URINE POSITIVE (NEGATIVE); OCCULT BLOOD,URINE 2+ (NEG-TRACE); UROBILINOGEN,URINE 0.2 (0.2-1.0 EU)
[2019-02-08 07:55] LABS: BACTERIA 1+ (< 1+); CRYSTALS NEGATIVE (0-3 AVE/HPF); RBC,URINE 0-2 (0-3AV/HPF); WBC,URINE TNTC (0-5AV/HPF)
[2019-02-08 08:18] LABS: CALCIUM 7.8 mg/dl (8.5-10.1); CARBON DIOXIDE 22.5 mEq/L (21-32); CREATININE 1.83 mg/dl (0.60-1.00); POTASSIUM 4.8 mMol/L (3.5-5.1)
[2019-02-08 08:20] LABS: ANISOCYTOSIS SLIGHT; BAND NEUTROPHILS % (MANUAL) 3 %; BASOPHILS % (MANUAL) 0 % (0-3); EOSINOPHILS % (MANUAL) 0 % (0-9); LYMPHOCYTES % (MANUAL) 20 % (10-50); MONOCYTES % (MANUAL) 6 % (0-12); NEUTROPHILS % (MANUAL) 71 % (37-80); OVALOCYTES PRESENT; POIKILOCYTOSIS SLIGHT
[2019-02-08] MEDS ORDERED: TIMOLOL MALEATE 0.5% EACHEYE SCH (09:00)
[2019-02-08] MEDS: PREDNISONE 5 MG TAB PO SCH (09:02)
[2019-02-08] MEDS: HUMALOG PEN 100 U/ML SC SCH ×4 (09:03→21:25)
[2019-02-08] MEDS: APIXABAN 5 MG PO SCH ×2 (09:07→21:21)
[2019-02-08] MEDS: BRIMONIDINE 0.2% EACHEYE SCH ×3 (09:57→21:21)
[2019-02-08] MEDS: TIMOLOL MALEATE 0.5% OPHTHAL SOL EACHEYE SCH (10:02)
[2019-02-08] MEDS: LEVOFLOXACIN 500 MG TAB PO SCH (10:05)
[2019-02-08] MEDS: METOPROLOL SUCCINATE 50 MG ER TAB PO SCH (21:22)
[2019-02-08] MEDS: INSULIN GLARGINE, RECOMBINAN 100 U/ML SOL SC SCH (21:24)
[2019-02-08] MEDS: LATANOPROST 0.005% SOL EACHEYE SCH (21:27)
[2019-02-09 07:33] LABS: CARBON DIOXIDE 20.9 mEq/L (21-32); CREATININE 1.63 mg/dl (0.60-1.00); HEMATOCRIT 28 % (35-47); HEMOGLOBIN 8.7 gm/dl (12.0-15.5); MEAN CORPUSCULAR HEMOGLOBIN 27.5 pg (27.0-32.0); MEAN CORPUSCULAR HGB CONC 30.9 gm/dl (32.0-36.0); MEAN CORPUSCULAR VOLUME 89 fL (81-99); POTASSIUM 4.5 mMol/L (3.5-5.1)
[2019-02-09 08:12] LABS: BAND NEUTROPHILS % (MANUAL) 11 %; BASOPHILS % (MANUAL) 0 % (0-3); EOSINOPHILS % (MANUAL) 0 % (0-9); HYPOCHROMASIA SLIGHT AMOUNT; LYMPHOCYTES % (MANUAL) 14 % (10-50); MONOCYTES % (MANUAL) 7 % (0-12); NEUTROPHILS % (MANUAL) 68 % (37-80); POIKILOCYTOSIS SLIGHT AMT
[2019-02-09 08:13] LABS: ANISOCYTOSIS SLIGHT AMT; BURR CELLS PRESENT; OVALOCYTES PRESENT
[2019-02-09] MEDS: HUMALOG PEN 100 U/ML SC SCH ×4 (09:45→21:07)
[2019-02-09] MEDS: LEVOFLOXACIN 500 MG TAB PO SCH (09:47)
[2019-02-09] MEDS: APIXABAN 5 MG PO SCH ×2 (09:48→20:57)
[2019-02-09] MEDS: TIMOLOL MALEATE 0.5% OPHTHAL SOL EACHEYE SCH (09:49)
[2019-02-09] MEDS: BRIMONIDINE 0.2% EACHEYE SCH ×2 (09:49→21:02)
[2019-02-09] MEDS: SODIUM CHLORIDE 0.9% 1000ML 1,000 ML IV SCH (17:42)
[2019-02-09] MEDS: METOPROLOL SUCCINATE 50 MG ER TAB PO SCH (20:57)
[2019-02-09] MEDS: LATANOPROST 0.005% SOL EACHEYE SCH (21:02)
[2019-02-09] MEDS: INSULIN GLARGINE, RECOMBINAN 100 U/ML SOL SC SCH (21:33)
[2019-02-10 02:03] VITALS: RESP 16
[2019-02-10 07:51] LABS: CARBON DIOXIDE 22.1 mEq/L (21-32); CREATININE 1.4 mg/dl (0.60-1.00)
[2019-02-10] MEDS: HUMALOG PEN 100 U/ML SC SCH ×2 (08:43→12:02)
[2019-02-10] MEDS: LEVOFLOXACIN 500 MG TAB PO SCH (09:45)
[2019-02-10] MEDS: APIXABAN 5 MG PO SCH (09:45)
[2019-02-10] MEDS: PREDNISONE 5 MG TAB PO SCH (09:45)
[2019-02-10] MEDS: BRIMONIDINE 0.2% EACHEYE SCH (09:46)
[2019-02-10] MEDS: TIMOLOL MALEATE 0.5% OPHTHAL SOL EACHEYE SCH (09:46)
[2019-02-10 09:55] VITALS: BP 94/69; PULSE 92; TEMP 98.3; O2SAT 99
== END 2019-02-10 14:20 | DRG 872 ==
LOC: ACUTE CARE 17:07
PROVIDERS: ADMIT Family Medicine; ATTEND Family Medicine
DX: A41.9 Sepsis, unspecified organism (principal); N30.00 Acute cystitis without hematuria; N17.9 Acute kidney failure, unspecified; L97.518 Non-pressure chronic ulcer of other part of right foot with other specified severity; L97.821 Non-pressure chronic ulcer of other part of left lower leg limited to breakdown of skin; Z94.0 Kidney transplant status; R50.9 Fever, unspecified; E86.0 Dehydration; L30.9 Dermatitis, unspecified; S61.512A Laceration without foreign body of left wrist, initial encounter; E11.22 Type 2 diabetes mellitus with diabetic chronic kidney disease; Z79.4 Long term (current) use of insulin; I48.2 Chronic atrial fibrillation
CPT/HCPCS: 36415; 71045; 80048; 81001; 82962; 85007; 85027; 87040; 87077; 87088; 87186; 99070; J1720; J1815; J1817; J1956; J2405; A6219; A6232; A9270-GY

== ENCOUNTER 2019-04-20 09:19 | Inpatient (IN) | payer MEDICARE, BC | END 2019-04-22 11:15 | LOC: ED 09:19 → ACUTE CARE 12:42 ==

== ENCOUNTER 2019-04-30 13:33 | Outpatient (CLI) | payer MEDICARE, BC, OTHER ==
[2019-04-22 08:07] VITALS: O2SAT 98
== END 2019-04-30 13:34 | disposition home or self-care (01) | DRG 315 ==
LOC: CONVCARE 13:33
PROVIDERS: ATTEND Internal Medicine Cardiovascular Disease
DX: I42.9 Cardiomyopathy, unspecified (principal); I50.22 Chronic systolic (congestive) heart failure; Z94.0 Kidney transplant status; I44.7 Left bundle-branch block, unspecified; Z79.1 Long term (current) use of non-steroidal anti-inflammatories (NSAID); I10 Essential (primary) hypertension; E78.5 Hyperlipidemia, unspecified; E11.9 Type 2 diabetes mellitus without complications; D64.9 Anemia, unspecified; R60.9 Edema, unspecified
CPT/HCPCS: 93005

== ENCOUNTER 2019-05-14 03:16 | Emergency (ER) | payer MEDICARE, BC ==
[2019-05-14 03:25] VITALS: RESP 20; O2SAT 100
[2019-05-14 04:04] LABS: BASOPHILS % (AUTO) 1 % (0-3); EOSINOPHILS % (AUTO) 3 % (0-9); HEMATOCRIT 27 % (35-47); LYMPHOCYTES % (AUTO) 30.7 % (10-50); MEAN CORPUSCULAR HEMOGLOBIN 28.3 pg (27.0-32.0); MEAN CORPUSCULAR HGB CONC 32.6 gm/dl (32.0-36.0); MEAN CORPUSCULAR VOLUME 87 fL (81-99); MONOCYTES % (AUTO) 9.7 % (0-12); NEUTROPHILS % (AUTO) 56.1 % (37-80)
[2019-05-14] MEDS ORDERED: NOVOLOG FLEXPEN SC ONE ×2 (04:07→04:08)
[2019-05-14 04:09] LABS: APPEARANCE,URINE Clear; BILIRUBIN,URINE NEGATIVE (NEGATIVE); CALCIUM 8.6 mg/dl (8.5-10.1); CARBON DIOXIDE 26.2 mEq/L (21-32); COLOR,URINE Yellow; CREATININE 1.17 mg/dl (0.60-1.00); GLUCOSE, URINE (UA) 3+ (NEGATIVE); KETONES,URINE NEGATIVE (NEGATIVE); LEUKOCYTE ESTERASE ,URINE NEGATIVE (NEGATIVE); NITRATE,URINE NEGATIVE (NEGATIVE); OCCULT BLOOD,URINE TRACE LYSED (NEG-TRACE); PH,URINE 5.5; POTASSIUM 3.8 mMol/L (3.5-5.1); UROBILINOGEN,URINE 0.2 (0.2-1.0 EU)
[2019-05-14] MEDS ORDERED: NOVOLOG FLEXPEN SC SCH (04:15)
[2019-05-14 04:16] LABS: BACTERIA RARE (< 1+); CRYSTALS NEGATIVE (0-3 AVE/HPF)
[2019-05-14 05:01] VITALS: BP 126/71; PULSE 66; TEMP 97.1
== END 2019-05-14 04:55 | DRG 639 ==
LOC: ED 03:16
DX: E11.65 Type 2 diabetes mellitus with hyperglycemia (principal); Z79.4 Long term (current) use of insulin
CPT/HCPCS: 36415; 80048; 81001; 82962; 85025; 96372; 99283; J1815

== ENCOUNTER 2019-06-26 10:31 | Emergency (ER) | payer MEDICARE, BC, OTHER ==
[2019-06-26] MEDS ORDERED: ONDANSETRON HCL 4 MG/2 ML SOL IV ONE (10:55)
[2019-06-26] MEDS ORDERED: PANTOPRAZOLE SODIUM 40 MG VIAL 80 MG in SODIUM CHLORIDE 0.9% 100 ML 80 ML IV ONE (10:55)
[2019-06-26 11:03] VITALS: TEMP 96.9
[2019-06-26] MEDS ORDERED: ONDANSETRON HCL 4 MG/2 ML SOL ONE (11:04)
[2019-06-26] MEDS ORDERED: PANTOPRAZOLE SODIUM 40 MG/10 ML PDS ONE (11:04)
[2019-06-26] MEDS ORDERED: SODIUM CHLORIDE 0.9% 1000 ML SOL IV ONE (11:17)
[2019-06-26 11:26] LABS: BASOPHILS % (AUTO) 1 % (0-3); EOSINOPHILS % (AUTO) 1 % (0-9); HEMATOCRIT 34 % (35-47); HEMOGLOBIN 11.1 gm/dl (12.0-15.5); LYMPHOCYTES % (AUTO) 32.1 % (10-50); MEAN CORPUSCULAR HEMOGLOBIN 28.5 pg (27.0-32.0); MEAN CORPUSCULAR HGB CONC 32.4 gm/dl (32.0-36.0); MEAN CORPUSCULAR VOLUME 88 fL (81-99); MONOCYTES % (AUTO) 6.7 % (0-12); NEUTROPHILS % (AUTO) 58.9 % (37-80)
[2019-06-26 11:35] LABS: ALBUMIN 3.6 gm/dl (3.4-5.0); BILIRUBIN,TOTAL 0.4 mg/dl (0.2-1.0); CARBON DIOXIDE 20.4 mEq/L (21-32); CREATININE 4.79 mg/dl (0.60-1.00); TOTAL PROTEIN 7.1 gm/dl (6.4-8.2)
[2019-06-26] MEDS ORDERED: CALCIUM GLUCONATE IV ONE (11:57)
[2019-06-26] MEDS ORDERED: SODIUM CHLORIDE 0.9% IV ONE (11:57)
[2019-06-26 11:59] LABS: APPEARANCE,URINE Cloudy; BILIRUBIN,URINE 1+ (NEGATIVE); COLOR,URINE Yellow; GLUCOSE, URINE (UA) NEGATIVE (NEGATIVE); KETONES,URINE NEGATIVE (NEGATIVE); LEUKOCYTE ESTERASE ,URINE 3+ (NEGATIVE); NITRATE,URINE NEGATIVE (NEGATIVE); OCCULT BLOOD,URINE 2+ (NEG-TRACE); PH,URINE 5.5; UROBILINOGEN,URINE 0.2 (0.2-1.0 EU)
[2019-06-26] MEDS ORDERED: ALBUTEROL NEB SOL 2.5MG/3ML 1 VIAL SOL NEB ONE (11:59)
[2019-06-26] MEDS ORDERED: DEXTROSE 50% 1 VIAL SOL IV ONE ×2 (12:01→12:22)
[2019-06-26] MEDS ORDERED: ALBUTEROL NEB SOL 2.5MG/3ML 1 VIAL SOL ONE (12:04)
[2019-06-26] MEDS ORDERED: CALCIUM GLUCONATE 10% 100 MG/ML SOL IV ONE (12:07)
[2019-06-26 12:16] VITALS: O2SAT 100
[2019-06-26 12:20] LABS: BACTERIA 3+ (< 1+); CRYSTALS NEGATIVE (0-3 AVE/HPF); EPITHELIAL CELLS NEGATIVE (SQUAMOUS); ICTOTEST,URINE NEGATIVE (NEGATIVE); RBC,URINE 20-30 (0-3AV/HPF); WBC,URINE TNTC (0-5AV/HPF)
[2019-06-26] MEDS ORDERED: INSULIN HUMAN REGULAR 100 U/ML SOL SUBCUT ONE (12:20)
[2019-06-26] MEDS ORDERED: INSULIN HUMAN REGULAR 100 U/ML SOL ONE (12:36)
[2019-06-26] MEDS ORDERED: SODIUM BICARBONATE 8.4%(ADULT) 1 MEQ/ML SOL IV ONE ×2 (12:50→12:53)
[2019-06-26] MEDS ORDERED: SODIUM CHLORIDE 0.9% 1000ML 1,000 ML IV ONE (13:12)
[2019-06-26 13:28] VITALS: BP 97/37; PULSE 86; RESP 14
== END 2019-06-26 13:10 | disposition short-term general hospital (02) | DRG 684 ==
LOC: ED 10:31
DX: N17.9 Acute kidney failure, unspecified (principal); R11.2 Nausea with vomiting, unspecified; E87.5 Hyperkalemia; E11.9 Type 2 diabetes mellitus without complications
CPT/HCPCS: 80053; 81001; 82272; 83605; 85025; 87077; 87088; 87186; 93005; 96365; 96366; 96372; 96374; 99070; 99291; J0610; J1815; J2405; J7613

== ENCOUNTER 2019-07-05 09:03 | Emergency (ER) | payer MEDICARE, BC, OTHER | END 2019-07-05 11:31 | LOC: ED 09:03 ==